=== PATIENT | female | born 1965 | race Caucasian/White ===

== ENCOUNTER 2021-01-17 11:16 | Inpatient (IN) ==
[2021-01-17] MEDS ORDERED: SODIUM CHLORIDE 0.9% 1000ML 1,000 ML IV ONE (11:41)
[2021-01-17] MEDS ORDERED: ACYCLOVIR 400 MG TAB PO ONE (11:53)
--- NOTE | 2021-01-17 11:58 | XRay Report ---
XR chest 1V portable CLINICAL HISTORY: SEPSIS TECHNIQUE: Single frontal radiograph of the chest was obtained. Comparison: None available at the time of this dictation. FINDINGS: No lines and tubes are seen. The cardiomediastinal silhouette is normal. The lungs are clear. No evid ence of pleural effusion or pneumothorax. IMPRESSION: No acute chest disease. ACT 112: Negative or not required by law. Electronically signed by: Jeff Langford M.D. 01/17/2021 11:57 AM
--- NOTE | 2021-01-17 12:03 | Emergency Department Note ---
History of Present Illness General Chief complaint: Mental Health Evaluation Stated complaint: PSYCHIATRIC EVAL Time Seen by Provider: 01/17/21 11:41 History of Present Illness Provider complaint: Mental health evaluation suicidal ideation Maximum Pain Intensity: 3 Associated symptoms: + fever/chills 55-year-old female with history of CML presents emergency department for suicidal ideation, depression, and anxiety. Patient reports that she has been having these feelings for the last 6 months. Patient is being treated by oncology at [facility] for CML. Patient reports that she has a plan to kill herself by dressing and all black and then walking on a highway hoping to get struck by a tractor trailer. Patient states she has other plans on how she would kill her self but refuses to tell me the other plans. Patient states she went to [facility] and was referred here. She states that a week that she had a temperature of 101 and that is why they brought her to the emergency department here. Patient states she has been having fevers on and off for the last few days. Home Medications Medication Instructions Recorded Confirmed Type acyclovir 400 mg tablet 400 mg PO BID 01/17/21 01/17/21 History cefuroxime axetil 250 mg tablet 250 mg PO BID 01/17/21 01/17/21 History clonazepam 0.5 mg tablet 0.5 mg PO TID 01/17/21 01/17/21 History dasatinib 50 mg tablet (Sprycel) 100 mg PO DAILY 01/17/21 01/17/21 History metoprolol succinate 25 mg 25 mg PO BID 01/17/21 01/17/21 History tablet,extended release 24 hr Allergies Allergy/AdvReac Type Severity Reaction Status Date / Time carbamazepine [From Tegretol] Allergy Anaphylaxis Verified 01/17/21 15:52 codeine Allergy Anaphylaxis Verified 01/17/21 15:52 meperidine [From Demerol] Allergy Anaphylaxis Verified 01/17/21 15:52 morphine Allergy Anaphylaxis Verified 01/17/21 15:52 Penicillins Allergy Anaphylaxis Verified 01/17/21 15:52 phenobarbital Allergy Anaphylaxis Verified 01/17/21 15:52 Sulfa (Sulfonamide Allergy Anaphylaxis Verified 01/17/21 15:52 Antibiotics) IVP dye Allergy Anaphylaxis Uncoded 01/17/21 15:52 sodium pentothal Allergy Anaphylaxis Uncoded 01/17/21 15:52 Past Med/Surg History Medical History (Updated 01/17/21 @ 15:06 by Osmin Balderas MD) Anxiety Choledocholithiasis s/p ERCP, no cholecystectomy CML (chronic myelocytic leukemia) History of small bowel obstruction s/p adehesiolysis surgery Muscle cramps Rheumatoid arthritis Surgical History (Updated 01/17/21 @ 14:59 by Osmin Balderas MD) History of appendectomy History of section History of hysterectomy with oophorectomy Social History Smoking Status: Never smoker Preferred Language: Danish Feels Safe at Home: Yes Review of Systems A total of 10 systems reviewed and were otherwise negative Physical Exam Vital Signs Vital Signs - 24 hr 01/17/21 11:36 01/17/21 11:45 01/17/21 11:46 Temperature 37.9 C H 37.1 C 37.1 C Temperature Source Temporal Artery Scan Oral Oral Pulse Rate 104 H Pulse Rate [Apical] Pulse Rhythm Regular Pulse Strength Normal Respiratory Rate 18 Respiratory Effort / Characteristics Non-Labored Spontaneous Respiratory Depth Normal Respiratory Pattern Regular Blood Pressure 130/75 Blood Pressure [Left Arm] Blood Pressure Mean 93 Blood Pressure Mean [Left Arm] Blood Pressure Position Sitting Pulse Oximetry 95 Oxygen Delivery Method Room Air Sepsis Recent Fever Within 48 Hours No Sepsis New/Unexplained Change in Mental Status No Sepsis Action Taken by Nursing No Action Required 01/17/21 13:21 01/17/21 14:18 Temperature Temperature Source Pulse Rate Pulse Rate [Apical] 93 H 100 H Pulse Rhythm Pulse Strength Respiratory Rate 20 20 Respiratory Effort / Characteristics Non-Labored Spontaneous Non-Labored Spontaneous Respiratory Depth Normal Normal Respiratory Pattern Regular Regular Blood Pressure Blood Pressure [Left Arm] 138/80 145/78 H Blood Pressure Mean Blood Pressure Mean [Left Arm] 99 100 Blood Pressure Position Pulse Oximetry 96 95 Oxygen Delivery Method Room Air Room Air Sepsis Recent Fever Within 48 Hours Sepsis New/Unexplained Change in Mental Status Sepsis Action Taken by Nursing Physical Exam GENERAL: She is oriented to person, place, and time. She appears well-developed and well-nourished. She does not appear distressed. HENT: Exam performed. -Head: Normocephalic and atraumatic. -Right Ear: External ear normal. No mastoid tenderness. -Left Ear: External ear normal. No mastoid tenderness. -Mouth/Throat: The oropharynx is clear and moist. No trismus in the jaw. No dental abscesses or uvula swelling. No oropharyngeal exudate or tonsillar abscesses. EYES: Conjunctivae and EOM are normal. Pupils are equal, round, and reactive to light. Right eye exhibits no discharge. Left eye exhibits no discharge. No scleral icterus. NECK: Normal range of motion. Neck supple. No JVD present. No spinous process tenderness present. No carotid bruit present. No rigidity. No tracheal deviation and normal range of motion present. No Brudzinski's sign and no Kernig's sign noted. CV: Tachycardic rate, regular rhythm, normal heart sounds and intact distal pulses. There is no peripheral edema. Palpable radial pulses bue. PULM/CHEST: Effort normal and breath sounds normal. No respiratory distress. No stridor. She has no wheezes. She has no rales. -Chest Wall: She exhibits no tenderness. ABD: The abdomen is soft. Bowel sounds are normal. She has no distension. No mass is present. There is no tenderness. There is no rebound, no guarding, no Zarate's sign and no tenderness at McBurney's point. Rovsig negative MUSC/SKEL: Normal range of motion. There is no peripheral edema, tenderness or deformity. LYMPH: No cervical adenopathy. NEURO: She is alert and oriented to person, place, and time. She has normal strength. No cranial nerve deficit or sensory deficit. Coordination and gait normal. GCS eye subscore is 4. GCS verbal subscore is 5. GCS motor subscore is 6. Cerebellar tests wnl. SKIN: Skin is warm and dry. She is not diaphoretic. PSYCH: Patient appears anxious and depressed. Patient is having suicidal ideation. Course Course 1141: The patient was evaluated in room C6 with psychiatric human resources district manager Fanta. A complete history and physical exam was performed Cardiac monitoring: An order was placed for continuous cardiac monitoring. The monitor shows a rate of 100 with sinus tachycardia rhythm 1330: Vital signs stable. Patient is positive for COVID-19. [facility] her COVID- 19 and her suicidal ideation and be evaluated by psychiatry. Administered Medications Discontinued Medications Acyclovir (Acyclovir 400 Mg Tab) 400 mg PO ONE ONE Stop: 01/17/21 11:54 Last Admin: 01/17/21 12:36 Dose: 400 mg Documented by: [id number] Sodium Chloride (Nss 1000ml) 1,000 mls @ 999 mls/hr IV .Q1H1M ONE Stop: 01/17/21 12:41 Last Infusion: 01/17/21 13:34 Dose: 0 mls/hr Documented by: [id number] Admin: 01/17/21 12:33 Dose: 999 mls/hr Documented by: [id number] Metoprolol Succinate (Metoprolol Succ 25mg Ext Rel Tab) 25 mg PO ONE STA Stop: 01/17/21 15:25 Last Admin: 01/17/21 16:06 Dose: 25 mg Documented by: [id number] Potassium Chloride (Potassium Chloride 10 Meq Tabcr) 40 meq PO NOW STA Stop: 01/17/21 14:56 Last Admin: 01/17/21 15:56 Dose: Not Given Documented by: [id number] Medical Decision Making Laboratory Data Result diagrams: 01/17/21 12:11 01/17/21 12:11 Lab Results 01/17/21 01/17/21 01/17/21 Range/Units 12:09 12:09 12:11 WBC 3.03 L (4.8-10.8) K/uL RBC 3.75 L (4.2-5.4) M/uL Hgb 11.5 L (12.0-16.0) g/dL Hct 34.9 L (37-47) % MCV 93.1 (80-100) fL MCH 30.7 (25-34) pg MCHC 33.0 (32-36) g/dL RDW Std Deviation 56.0 H (36.4-46.3) fL RDW Coeff of Elpidio 16.2 H (11.5-14.5) % Plt Count 135 (130-400) K/uL MPV 10.9 H (7.4-10.4) fL Immature Gran % (Auto) 0.0 % Neut % (Auto) 83.5 % Lymph % (Auto) 6.3 % Turner % (Auto) 9.6 % Eos % (Auto) 0.3 % Baso % (Auto) 0.3 % Neut # (Auto) 2.53 (1.4-6.5) K/uL Lymph # (Auto) 0.19 L (1.2-3.4) K/uL Turner # (Auto) 0.29 (0.11-0.59) K/uL Eos # (Auto) 0.01 (0-0.5) K/uL Baso # (Auto) 0.01 (0-0.2) K/uL Immature Gran # (Auto) 0.00 (0.00-0.02) K/uL PT (9.0-12.0) Seconds INR (0.9-1.1) APTT (21.0-31.0) Seconds PTT Ratio Sodium (136-145) mmol/L Potassium (3.5-5.1) mmol/L Chloride (98-107) mmol/L Carbon Dioxide (21-32) mmol/L Anion Gap (3-11) BUN (7-18) mg/dl Creatinine (0.6-1.2) mg/dl Est Cr Clr Drug Dosing ml/min Est GFR ( Amer) ml/min Est GFR (Non-Af Amer) ml/min BUN/Creatinine Ratio (10-20) Glucose (70-99) mg/dl Lactate (0.4-2.0) mmol/L Calcium (8.5-10.1) mg/dl Magnesium (1.8-2.4) mg/dl Total Bilirubin (0.2-1) mg/dl AST (15-37) U/L ALT (12-78) U/L Alkaline Phosphatase (45-117) U/L Troponin I (0-0.045) ng/ml Total Protein (6.4-8.2) gm/dl Albumin (3.4-5.0) gm/dl Globulin (2.5-4.0) gm/dl Albumin/Globulin Ratio (0.9-2) Procalcitonin (0-0.5) ng/ml Urine Color Urine Appearance (Clear) Urine pH (4.5-7.5) Ur Specific Callery (1.000-1.030) Urine Protein (Negative) Urine Glucose (UA) (Negative) Urine Ketones (Negative) Urine Blood (Negative) Urine Nitrite (Negative) Urine Bilirubin (Negative) Urine Urobilinogen (Negative) Ur Leukocyte Esterase (Negative) Urine WBC (Auto) (0-5) /hpf Urine RBC (Auto) (0-4) /hpf U Hyaline Cast (Auto) (0-5) /lpf U Epithel Cells (Auto) (0-5) /lpf Urine Bacteria (Auto) (Negative) Salicylates (2.8-20) mg/dl Acetaminophen (10-30) ug/ml COVID-19 Eval Order Covid19 at [facility] SARS-CoV-2 (PCR) POSITIVE A* (Negative) 01/17/21 01/17/21 01/17/21 Range/Units 12:11 12:11 12:11 WBC (4.8-10.8) K/uL RBC (4.2-5.4) M/uL Hgb (12.0-16.0) g/dL Hct (37-47) % MCV (80-100) fL MCH (25-34) pg MCHC (32-36) g/dL RDW Std Deviation (36.4-46.3) fL RDW Coeff of Elpidio (11.5-14.5) % Plt Count (130-400) K/uL MPV (7.4-10.4) fL Immature Gran % (Auto) % Neut % (Auto) % Lymph % (Auto) % Turner % (Auto) % Eos % (Auto) % Baso % (Auto) % Neut # (Auto) (1.4-6.5) K/uL Lymph # (Auto) (1.2-3.4) K/uL Turner # (Auto) (0.11-0.59) K/uL Eos # (Auto) (0-0.5) K/uL Baso # (Auto) (0-0.2) K/uL Immature Gran # (Auto) (0.00-0.02) K/uL PT 11.1 (9.0-12.0) Seconds INR 1.1 (0.9-1.1) APTT 27.6 (21.0-31.0) Seconds PTT Ratio 1.0 Sodium 141 (136-145) mmol/L Potassium 3.1 L (3.5-5.1) mmol/L Chloride 108 H (98-107) mmol/L Carbon Dioxide 27 (21-32) mmol/L Anion Gap 6.0 (3-11) BUN 6 L (7-18) mg/dl Creatinine 0.63 (0.6-1.2) mg/dl Est Cr Clr Drug Dosing 74.3 ml/min Est GFR ( Amer) 115.4 ml/min Est GFR (Non-Af Amer) 99.6 ml/min BUN/Creatinine Ratio 9.5 L (10-20) Glucose 93 (70-99) mg/dl Lactate 0.7 (0.4-2.0) mmol/L Calcium 9.3 (8.5-10.1) mg/dl Magnesium 1.9 (1.8-2.4) mg/dl Total Bilirubin 0.5 (0.2-1) mg/dl AST 30 (15-37) U/L ALT 33 (12-78) U/L Alkaline Phosphatase 78 (45-117) U/L Troponin I < 0.015 (0-0.045) ng/ml Total Protein 7.2 (6.4-8.2) gm/dl Albumin 3.8 (3.4-5.0) gm/dl Globulin 3.4 (2.5-4.0) gm/dl Albumin/Globulin Ratio 1.1 (0.9-2) Procalcitonin (0-0.5) ng/ml Urine Color Urine Appearance (Clear) Urine pH (4.5-7.5) Ur Specific Callery (1.000-1.030) Urine Protein (Negative) Urine Glucose (UA) (Negative) Urine Ketones (Negative) Urine Blood (Negative) Urine Nitrite (Negative) Urine Bilirubin (Negative) Urine Urobilinogen (Negative) Ur Leukocyte Esterase (Negative) Urine WBC (Auto) (0-5) /hpf Urine RBC (Auto) (0-4) /hpf U Hyaline Cast (Auto) (0-5) /lpf U Epithel Cells (Auto) (0-5) /lpf Urine Bacteria (Auto) (Negative) Salicylates (2.8-20) mg/dl Acetaminophen (10-30) ug/ml COVID-19 Eval Order SARS-CoV-2 (PCR) (Negative) 01/17/21 01/17/21 01/17/21 Range/Units 12:11 12:11 12:30 WBC (4.8-10.8) K/uL RBC (4.2-5.4) M/uL Hgb (12.0-16.0) g/dL Hct (37-47) % MCV (80-100) fL MCH (25-34) pg MCHC (32-36) g/dL RDW Std Deviation (36.4-46.3) fL RDW Coeff of Elpidio (11.5-14.5) % Plt Count (130-400) K/uL MPV (7.4-10.4) fL Immature Gran % (Auto) % Neut % (Auto) % Lymph % (Auto) % Turner % (Auto) % Eos % (Auto) % Baso % (Auto) % Neut # (Auto) (1.4-6.5) K/uL Lymph # (Auto) (1.2-3.4) K/uL Turner # (Auto) (0.11-0.59) K/uL Eos # (Auto) (0-0.5) K/uL Baso # (Auto) (0-0.2) K/uL Immature Gran # (Auto) (0.00-0.02) K/uL PT (9.0-12.0) Seconds INR (0.9-1.1) APTT (21.0-31.0) Seconds PTT Ratio Sodium (136-145) mmol/L Potassium (3.5-5.1) mmol/L Chloride (98-107) mmol/L Carbon Dioxide (21-32) mmol/L Anion Gap (3-11) BUN (7-18) mg/dl Creatinine (0.6-1.2) mg/dl Est Cr Clr Drug Dosing ml/min Est GFR ( Amer) ml/min Est GFR (Non-Af Amer) ml/min BUN/Creatinine Ratio (10-20) Glucose (70-99) mg/dl Lactate (0.4-2.0) mmol/L Calcium (8.5-10.1) mg/dl Magnesium (1.8-2.4) mg/dl Total Bilirubin (0.2-1) mg/dl AST (15-37) U/L ALT (12-78) U/L Alkaline Phosphatase (45-117) U/L Troponin I (0-0.045) ng/ml Total Protein (6.4-8.2) gm/dl Albumin (3.4-5.0) gm/dl Globulin (2.5-4.0) gm/dl Albumin/Globulin Ratio (0.9-2) Procalcitonin < 0.05 (0-0.5) ng/ml Urine Color Yellow Urine Appearance Clear (Clear) Urine pH 6.5 (4.5-7.5) Ur Specific Callery 1.014 (1.000-1.030) Urine Protein Trace H (Negative) Urine Glucose (UA) Negative (Negative) Urine Ketones Trace H (Negative) Urine Blood Trace H (Negative) Urine Nitrite Negative (Negative) Urine Bilirubin Negative (Negative) Urine Urobilinogen Negative (Negative) Ur Leukocyte Esterase 2+ H (Negative) Urine WBC (Auto) 5-10 H (0-5) /hpf Urine RBC (Auto) 5-10 H (0-4) /hpf U Hyaline Cast (Auto) 10-30 H (0-5) /lpf U Epithel Cells (Auto) >30 H (0-5) /lpf Urine Bacteria (Auto) Negative (Negative) Salicylates < 1.7 L (2.8-20) mg/dl Acetaminophen < 2 L (10-30) ug/ml COVID-19 Eval Order SARS-CoV-2 (PCR) (Negative) Imaging Data Radiologist's Impression: Chest X-Ray 01/17/21 11:41 XR chest 1V portable CLINICAL HISTORY: SEPSIS TECHNIQUE: Single frontal radiograph of the chest was obtained. Comparison: None available at the time of this dictation. FINDINGS: No lines and tubes are seen. The cardiomediastinal silhouette is normal. The lungs are clear. No evidence of pleural effusion or pneumothorax. IMPRESSION: No acute chest disease. ACT 112: Negative or not required by law. Electronically signed by: Jeff Langford M.D. 01/17/2021 11:57 AM [facility] Narrative Vital signs stable. Patient is positive for COVID-19. Patient will be admitted to the [facility] hospitalist team for further evaluation of her COVID-19 and her suicidal ideation and be evaluated by psychiatry. Impression & Plan SARS-CoV-2 positive, Suicidal ideation Discharge Plan Visit Data Chief Complaint: Mental Health Evaluation Stated Complaint: PSYCHIATRIC EVAL ED Provider: Leon Cartagena Discharge Problem: SARS-CoV-2 positive, Suicidal ideation Patient Disposition: Being Evaluated by Hospitalist Forms Stand Alone Forms: My [facility], Suicide Prevention Resources Prescriptions Prescriptions: No Action cefuroxime axetil 250 mg tablet 250 mg PO BID RF: 0 clonazepam 0.5 mg tablet 0.5 mg PO TID RF: 0 acyclovir 400 mg tablet 400 mg PO BID RF: 0 metoprolol succinate 25 mg Tablet Extended Release 24 Hr 25 mg PO BID RF: 0 Sprycel 50 mg tablet 100 mg PO DAILY RF: 0 Referrals Referrals: PCP,NO [Primary Care Provider] -
[2021-01-17 12:23] LABS: Basophils # (auto) 0.01 K/uL (0-0.2); Basophils % (auto) 0.3 %; Eosinophils # (auto) 0.01 K/uL (0-0.5); Eosinophils % (auto) 0.3 %; Hematocrit (blood only) 34.9 % (37-47); Hemoglobin 11.5 g/dL (12.0-16.0); Lymphocytes # (auto) 0.19 K/uL (1.2-3.4); Lymphocytes % (auto) 6.3 %; Mean Corpuscular Hemoglobin 30.7 pg (25-34); Mean Corpuscular Volume 93.1 fL (80-100); Mean Platelet Volume 10.9 fL (7.4-10.4); Monocytes # (auto) 0.29 K/uL (0.11-0.59); Monocytes % (auto) 9.6 %; Neutrophils # (auto) 2.53 K/uL (1.4-6.5); Neutrophils % (auto) 83.5 %; Platelet Count 135 K/uL (130-400); RDW Coefficient of Variation 16.2 % (11.5-14.5); Red Blood Count 3.75 M/uL (4.2-5.4); White Blood Count 3.03 K/uL (4.8-10.8)
[2021-01-17 12:35] LABS: INR 1.1 (0.9-1.1); Partial Thromboplastin Time 27.6 Seconds (21.0-31.0); Prothrombin Time 11.1 Seconds (9.0-12.0)
[2021-01-17 12:45] LABS: Acetaminophen < 2 ug/ml (10-30); Alanine Aminotransferase 33 U/L (12-78); Albumin Level 3.8 gm/dl (3.4-5.0); Aspartate Aminotransferase 30 U/L (15-37); BUN Creatinine Ratio 9.5 (10-20); Blood Urea Nitrogen 6 mg/dl (7-18); Calcium 9.3 mg/dl (8.5-10.1); Carbon Dioxide 27 mmol/L (21-32); Chloride 108 mmol/L (98-107); Creatinine Clr Calc Pharmacy 74.3 ml/min; Est GFR (African American) 115.4 ml/min; Est GFR (Non-African American) 99.6 ml/min; Glucose 93 mg/dl (70-99); Magnesium 1.9 mg/dl (1.8-2.4); Potassium 3.1 mmol/L (3.5-5.1); Salicylate < 1.7 mg/dl (2.8-20); Sodium 141 mmol/L (136-145)
[2021-01-17 12:51] LABS: Appearance Urine Clear (Clear); Bacteria Urine Automated Negative (Negative); Bilirubin Urine Negative (Negative); Blood Urine Trace (Negative); Color Urine Yellow; Epithelial Cell Urine Auto >30 /lpf (0-5); Glucose Urine UA Negative (Negative); Ketones Urine Trace (Negative); Leukocyte Esterase Urine 2+ (Negative); Nitrite Urine Negative (Negative); Protein Urine Trace (Negative); Specific Gravity Urine 1.014 (1.000-1.030); Urobilinogen Urine Negative (Negative); pH Urine 6.5 (4.5-7.5)
[2021-01-17 12:52] LABS: Albumin Globulin Ratio 1.1 (0.9-2); Alkaline Phosphatase 78 U/L (45-117); Bilirubin,Total 0.5 mg/dl (0.2-1); Globulin 3.4 gm/dl (2.5-4.0); Total Protein 7.2 gm/dl (6.4-8.2); Troponin I < 0.015 ng/ml (0-0.045)
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
[2021-01-17] MEDS ORDERED: POTASSIUM CHLORIDE 10 MEQ TABCR PO STA (14:55)
[2021-01-17] MEDS ORDERED: DASATINIB 100 MG PO STA (15:24)
[2021-01-17] MEDS ORDERED: METOPROLOL SUCC 25MG EXT REL TAB PO STA (15:24)
[2021-01-17] MEDS: [UNRECOGNIZED DRUG - REMARK] PO SCH (17:20)
[2021-01-17] MEDS ORDERED: clonazePAM 0.5 MG TAB PO PRN (20:42)
[2021-01-17] MEDS: ACYCLOVIR 400 MG TAB PO SCH (23:27)
[2021-01-17] MEDS: METOPROLOL SUCC 25MG EXT REL TAB PO SCH (23:28)
[2021-01-17] MEDS: PANTOprazole 40 MG TAB PO SCH (23:50)
[2021-01-18] MEDS ORDERED: ONDANSETRON INJ 2 MG/ML 2 ML VIAL IV PRN (00:54)
[2021-01-18] MEDS ORDERED: haloperidoL 1 MG TAB PO PRN (00:58)
[2021-01-18] MEDS ORDERED: PROMETHAZINE HCL 25 MG TAB PO PRN (00:58)
[2021-01-18] MEDS ORDERED: ONDANSETRON 4 MG OD TAB SL PRN (00:58)
[2021-01-18] MEDS: ACETAMINOPHEN 325 MG TAB PO PRN (01:35)
[2021-01-18] MEDS: PANTOprazole 40 MG in SYRINGE 0 ML IV SCH ×2 (01:35→10:52)
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
[2021-01-18] MEDS: METOPROLOL SUCC 25MG EXT REL TAB PO SCH ×2 (08:49→21:50)
[2021-01-18] MEDS: ACYCLOVIR 400 MG TAB PO SCH ×2 (08:49→21:50)
--- NOTE | 2021-01-18 11:49 | Hospitalist Progress Note ---
Date of Service January 18, 2021 Assessment & Plan (1) SARS-CoV-2 positive: Plan: Patient states she has had COVID-19 in the past. Was admitted to the hospital on account of suicidal ideation, and found to have positive COVID-19 test. Currently asymptomatic, saturating well on room air, afebrile. We will repeat COVID-19 test today (2) Suicidal ideation: Plan: Severe depression with suicidal ideation. Psychiatry on consult Currently on Klonopin, plan is for Remeron Deferred rest of management per psychiatry Patient will qualify for inpatient psych if her COVID-19 test comes back negative twice (3) Anxiety: Plan: Continue home medications (4) Rheumatoid arthritis: Plan: Patient not on any medication, unable to take biologics due to prior severe reaction to vaccines previously. (5) Atrial fibrillation: Plan: Currently in NSR therefore paroxysmal Continue metoprolol Not on anticoagulation (6) CML (chronic myelocytic leukemia): Plan: Dasatinib 100mg PO once daily Admission and Anticipated Discharge Date Admission Date: January 17, 2021 Subjective Patient seen and examined this morning, has a one-to-one sitter by the bedside, still has some anxiety Review of Systems Review of Systems: All systems reviewed are negative, apart from the ones contained in the history. Physical Exam Physical Exam: The patient is awake, alert and oriented 3, well developed and well nourished, normocephalic and atraumatic, lying in bed and in no acute distress. HEENT--PERRL, EOMI, mucous membranes and oropharynx mildly dry Neck--supple. No JVD. No bruits. Thyroid normal, trachea midline, no adenopathy. Heart--normal S1 and S2. No murmurs, rubs or gallops. Lungs--clear bilaterally, no respiratory distress, no accessory muscle use. Abdomen--normal bowel sounds and soft. Mild epigastric and left sided abdominal pain Extremities--no cyanosis or clubbing. No edema. Dermatologic--normal skin turgor, normal color, no abnormal lymph nodes, no rash. Neurologic--cranial nerves II through XII grossly intact. Rheumatologic--normal range of motion. Psychiatric--anxiety. Results & Data Results & Data ([facility]) Vital Signs (Past 12 Hours) Vital Signs Temp Pulse Resp BP Pulse Ox 01/18/21 08:03 98.1 F 69 16 98/61 L 99 Laboratory Results Laboratory Results - last 24 hr 01/17/21 01/17/21 01/17/21 12:09 12:09 12:11 WBC 3.03 L RBC 3.75 L Hgb 11.5 L Hct 34.9 L MCV 93.1 MCH 30.7 MCHC 33.0 RDW Std Deviation 56.0 H RDW Coeff of Elpidio 16.2 H Plt Count 135 MPV 10.9 H Immature Gran % (Auto) 0.0 Neut % (Auto) 83.5 Lymph % (Auto) 6.3 [place] % (Auto) 9.6 Eos % (Auto) 0.3 Baso % (Auto) 0.3 Neut # (Auto) 2.53 Lymph # (Auto) 0.19 L [place] # (Auto) 0.29 Eos # (Auto) 0.01 Baso # (Auto) 0.01 Immature Gran # (Auto) 0.00 PT INR APTT PTT Ratio Sodium Potassium Chloride Carbon Dioxide Anion Gap BUN Creatinine Est Cr Clr Drug Dosing Est GFR ( Amer) Est GFR (Non-Af Amer) BUN/Creatinine Ratio Glucose Lactate Calcium Magnesium Total Bilirubin AST ALT Alkaline Phosphatase Troponin I Total Protein Albumin Globulin Albumin/Globulin Ratio Procalcitonin Urine Color Urine Appearance Urine pH Ur Specific [place] Urine Protein Urine Glucose (UA) Urine Ketones Urine Blood Urine Nitrite Urine Bilirubin Urine Urobilinogen Ur Leukocyte Esterase Urine WBC (Auto) Urine RBC (Auto) U Hyaline Cast (Auto) U Epithel Cells (Auto) Urine Bacteria (Auto) Salicylates Acetaminophen COVID-19 Eval Order Covid19 at [facility] SARS-CoV-2 (PCR) POSITIVE A* 01/17/21 01/17/21 01/17/21 12:11 12:11 12:11 WBC RBC Hgb Hct MCV MCH MCHC RDW Std Deviation RDW Coeff of Elpidio Plt Count MPV Immature Gran % (Auto) Neut % (Auto) Lymph % (Auto) [place] % (Auto) Eos % (Auto) Baso % (Auto) Neut # (Auto) Lymph # (Auto) [place] # (Auto) Eos # (Auto) Baso # (Auto) Immature Gran # (Auto) PT 11.1 INR 1.1 APTT 27.6 PTT Ratio 1.0 Sodium 141 Potassium 3.1 L Chloride 108 H Carbon Dioxide 27 Anion Gap 6.0 BUN 6 L Creatinine 0.63 Est Cr Clr Drug Dosing 74.3 Est GFR ( Amer) 115.4 Est GFR (Non-Af Amer) 99.6 BUN/Creatinine Ratio 9.5 L Glucose 93 Lactate 0.7 Calcium 9.3 Magnesium 1.9 Total Bilirubin 0.5 AST 30 ALT 33 Alkaline Phosphatase 78 Troponin I < 0.015 Total Protein 7.2 Albumin 3.8 Globulin 3.4 Albumin/Globulin Ratio 1.1 Procalcitonin Urine Color Urine Appearance Urine pH Ur Specific [place] Urine Protein Urine Glucose (UA) Urine Ketones Urine Blood Urine Nitrite Urine Bilirubin Urine Urobilinogen Ur Leukocyte Esterase Urine WBC (Auto) Urine RBC (Auto) U Hyaline Cast (Auto) U Epithel Cells (Auto) Urine Bacteria (Auto) Salicylates Acetaminophen COVID-19 Eval Order SARS-CoV-2 (PCR) 01/17/21 01/17/21 01/17/21 12:11 12:11 12:30 WBC RBC Hgb Hct MCV MCH MCHC RDW Std Deviation RDW Coeff of Elpidio Plt Count MPV Immature Gran % (Auto) Neut % (Auto) Lymph % (Auto) [place] % (Auto) Eos % (Auto) Baso % (Auto) Neut # (Auto) Lymph # (Auto) [place] # (Auto) Eos # (Auto) Baso # (Auto) Immature Gran # (Auto) PT INR APTT PTT Ratio Sodium Potassium Chloride Carbon Dioxide Anion Gap BUN Creatinine Est Cr Clr Drug Dosing Est GFR ( Amer) Est GFR (Non-Af Amer) BUN/Creatinine Ratio Glucose Lactate Calcium Magnesium Total Bilirubin AST ALT Alkaline Phosphatase Troponin I Total Protein Albumin Globulin Albumin/Globulin Ratio Procalcitonin < 0.05 Urine Color Yellow Urine Appearance Clear Urine pH 6.5 Ur Specific [place] 1.014 Urine Protein Trace H Urine Glucose (UA) Negative Urine Ketones Trace H Urine Blood Trace H Urine Nitrite Negative Urine Bilirubin Negative Urine Urobilinogen Negative Ur Leukocyte Esterase 2+ H Urine WBC (Auto) 5-10 H Urine RBC (Auto) 5-10 H U Hyaline Cast (Auto) 10-30 H U Epithel Cells (Auto) >30 H Urine Bacteria (Auto) Negative Salicylates < 1.7 L Acetaminophen < 2 L COVID-19 Eval Order SARS-CoV-2 (PCR) PG Care Time/CCT Total # of Minutes Spent Total Time Spent with Patient: Total time spent is greater than 50% in coordination of care (as documented) at patient's floor/unit and/or counseling patient: Coding Level of Care Code 96817 Subseq Hosp Care Lvl 2 Diagnoses SARS-CoV-2 positive U07.1 Suicidal ideation R45.851 Anxiety F41.9 Rheumatoid arthritis M06.9 Atrial fibrillation I48.91 CML (chronic myelocytic leukemia) C92.10
--- NOTE | 2021-01-18 13:19 | Electrocardiogram Report ---
Test Reason : Blood Pressure : / mmHG Vent. Rate : 100 BPM Atrial Rate : 100 BPM P-R Int : 154 ms QRS Dur : 068 ms QT Int : 336 ms P-R-T Axes : 049 062 039 degrees QTc Int : 433 ms Normal sinus rhythm Normal ECG No previous ECGs available Confirmed by Jason Kinney [id number]) on 01/18/2021 1:19:14 PM Referred By: REFERRED SELF Confirmed By:Jason Kinney
[2021-01-18] MEDS ORDERED: ALPRAZolam 0.25 MG TABLET PO PRN (14:44)
[2021-01-18] MEDS ORDERED: DASATINIB 50 MG PO SCH (16:00)
[2021-01-18] MEDS: [UNRECOGNIZED DRUG - REMARK] PO SCH (17:28)
[2021-01-18] MEDS: MIRTAZAPINE TAB 15 MG TAB PO SCH (21:49)
[2021-01-18] MEDS: PANTOprazole 40 MG TAB PO SCH (21:50)
[2021-01-18] MEDS: hydrOXYzine HCl 10 MG TAB PO PRN (21:51)
[2021-01-19 08:04] LABS: Calcium 8.5 mg/dl (8.5-10.1); Creatinine Clr Calc Pharmacy 68.9 ml/min; Est GFR (African American) 112.5 ml/min; Est GFR (Non-African American) 97.1 ml/min; Potassium 2.9 mmol/L (3.5-5.1)
[2021-01-19] MEDS: ACYCLOVIR 400 MG TAB PO SCH ×2 (09:31→22:25)
[2021-01-19] MEDS: METOPROLOL SUCC 25MG EXT REL TAB PO SCH ×2 (09:34→22:26)
--- NOTE | 2021-01-19 10:43 | Psychiatric Progress Note ---
Date of Service January 19, 2021 Impression / Recommendations Impression 55 yo female with CML, sent to ED for SI with plan, reported fever and found COVID+--severe depression with anxiety component, unable to fully assess for PTSD given patient's level of anxiety during the assessment. (1) Suicidal ideation: (2) Major depression, recurrent: (3) SARS-CoV-2 positive: (4) CML (chronic myelocytic leukemia): 01/19/21: session took place with social work job titles and liaison to decrease splitting. Continue medications unchanged. 01/18/21: verify if had thyroid panel as typical psych clearance continue 1-on-1, should not be allowed to leave hospital AMA given potential lethality of plan and no coordinated safety plan at this time re: Tom, d/c in favor of trial of hydroxyzine 10 mg q6 prn. Lower dose given size and QTc risk with antiemetics. Risks/benefits/alternatives reviewed re: antidepressants for the treatment of depression and/or anxiety. The patient agreed to a trial of Remeron 7.5 mg starting this hs. Risk Factors Assessment Do You Have Access To A Gun?: No Interval History Identifying Information 55 yo female with CML admit 01/17/21 for fever, COVID+, suicidal ideation with plan. Chief Complaint "I wasn't going to be forced to stay anywhere where I don't agree with the policies". Review of Systems Notes as per HPI, denies BETTS, tremor, jitteriness. Telehealth Telehealth Options: Telephone only For the duration of the visit, provider was performing the assessment from: The same facility as the patient After establishing a telemedicine visit, patient was: Patient was verified with two unique identifiers, Patient/authorized rep acknowledged consent and understanding and Gave permission to continue telehealth session Total Time Spent (minutes): 25 Subjective Subjective Patient was seen & assessed and interval progress reviewed with nursing and social work. Patient was threatening to leave hospital AMA yesterday and to self-harm in her room. This was quite a contrast with her presentation earlier in the day. She was clearly told this was not appropriate given her acute suicidality and liaison prepped a petitioning statement. The patient reports sleep was fair. She was redirected away from unit policies as not medically cleared. Offered to involve boyfriend and daughter in stay and she preferred to wait. She discussed loss of her grandchild at 24 hours due to a dysplastic lung 5 years ago on Feb 21. She is glad that her daughter is tapering methadone and plans to get inseminated to have another child with her female partner. She was future focussed but also not feeling well with 2 days of N and D (typical) and reviewed hypokalemia. Physical Exam Psychiatric Orientation: alert and oriented x 3 Speech: normal rate/rhythm/volume of speech Mood: + depressed mood and + anxious mood Thought Process: goal directed thought process Thought Content: reality based without delusions Suicidal Thoughts: denies suicidal intent; + reports suicidal thoughts Homicidal Thoughts: denies homicidal thoughts Hallucinations: no auditory hallucinations and no visual hallucinations Cognition: attention grossly intact and language grossly intact Estimated Intelligence: consistent with education level Insight: + limited insight Judgement: + limited judgement Vital Signs (Past 24 Hours) Last Vital Signs Temp 37 C 01/19/21 08:19 Pulse 83 01/19/21 08:19 Resp 16 01/19/21 08:19 BP 107/68 01/19/21 08:19 Pulse Ox 91 01/19/21 08:19 Results & Data ([facility]) Laboratory Results Laboratory Results - last 24 hr 01/18/21 01/19/21 Unknown 06:40 Sodium 139 Potassium 2.9 L Chloride 107 Carbon Dioxide 24 Anion Gap 9.0 BUN 8 Creatinine 0.68 Est Cr Clr Drug Dosing 68.9 Est GFR ( Amer) 112.5 Est GFR (Non-Af Amer) 97.1 BUN/Creatinine Ratio 12.0 Glucose 83 Calcium 8.5 RSV (Molecular) Negative Current Inpatient Medications Current Inpatient Medications: Current Inpatient Medications Acetaminophen (Acetaminophen 325 Mg Tab) 650 mg PO Q4H PRN PRN Reason: Pain or Fever Stop: 02/17/21 00:53 Last Admin: 01/18/21 01:35 Dose: 650 mg Documented by: Acyclovir (Acyclovir 400 Mg Tab) 400 mg PO BID [facility] Stop: 02/16/21 20:59 Last Admin: 01/19/21 09:31 Dose: 400 mg Documented by: Haloperidol (Haloperidol 1 Mg Tab) 1 mg PO Q4H PRN PRN Reason: Nausea &/or Vomiting Stop: 02/17/21 00:57 Hydroxyzine HCl (Hydroxyzine Hcl 10 Mg Tab) 10 mg PO Q6 PRN PRN Reason: Anxiety Stop: 02/17/21 16:32 Last Admin: 01/18/21 21:51 Dose: 10 mg Documented by: Pantoprazole Sodium 40 mg/ (Syringe) 10 mls @ 5 mls/min IV DAILY@1100 [facility] Stop: 02/17/21 00:54 Last Admin: 01/18/21 10:52 Dose: 5 mls/min Documented by: Metoprolol Succinate (Metoprolol Succ 25mg Ext Rel Tab) 25 mg PO BID [facility] Stop: 02/16/21 20:59 Last Admin: 01/19/21 09:34 Dose: 25 mg Documented by: Mirtazapine (Mirtazapine Tab 15 Mg Tab) 7.5 mg PO HS [facility] Stop: 02/17/21 20:59 Last Admin: 01/18/21 21:49 Dose: 7.5 mg Documented by: *Dasatinib*Non-Form (Patient's Own Med) 1 ea PO DAILY [facility] Stop: 02/16/21 16:29 Last Admin: 01/18/21 17:28 Dose: 2 tab Documented by: Ondansetron HCl (Ondansetron Inj 2 Mg/Ml 2 Ml Vial) 4 mg IV Q6H PRN PRN Reason: Nausea Stop: 02/17/21 00:53 Ondansetron HCl (Ondansetron 4 Mg Od Tab) 4 mg SL Q4H PRN PRN Reason: Nausea &/or Vomiting Stop: 02/17/21 00:57 Pantoprazole Sodium (Pantoprazole 40 Mg Tab) 40 mg PO HS [facility] Stop: 02/16/21 22:34 Last Admin: 01/18/21 21:50 Dose: 40 mg Documented by: Promethazine HCl (Promethazine Hcl 25 Mg Tab) 12.5 mg PO Q6H PRN PRN Reason: Nausea &/or Vomiting Stop: 02/17/21 00:57
[2021-01-19] MEDS: PANTOprazole 40 MG in SYRINGE 0 ML IV SCH (10:52)
[2021-01-19] MEDS ORDERED: POTASSIUM CHLORIDE CRTAB 20 MEQ TABCR PO STA (11:13)
--- NOTE | 2021-01-19 11:30 | Hospitalist Progress Note ---
Date of Service January 19, 2021 Assessment & Plan (1) SARS-CoV-2 positive: Plan: Patient states she has had COVID-19 in the past. Was admitted to the hospital on account of suicidal ideation, and found to have positive COVID-19 test. Currently asymptomatic, saturating well on room air, afebrile. Although repeat covid was ordered yesterday, but it wasnt done for some reason. Will get a repeat covid today (2) Suicidal ideation: Plan: Severe depression with suicidal ideation. Psychiatry on consult Deferred rest of management per psychiatry (3) Anxiety: Plan: Continue home medications (4) Rheumatoid arthritis: Plan: Patient not on any medication, unable to take biologics due to prior severe reaction to vaccines previously. (5) Atrial fibrillation: Plan: Currently in NSR therefore paroxysmal Continue metoprolol Not on anticoagulation (6) CML (chronic myelocytic leukemia): Plan: Dasatinib 100mg PO once daily (7) Hypokalemia: Plan: Serum K 2.9 will replace with PO Potassium chloride 40meq Re check BMP Plan: Inpatient psych if her covid is negative x 2 Admission and Anticipated Discharge Date Admission Date: January 17, 2021 Subjective Patient seen and examined this morning, has a one-to-one sitter by the bedside, still has some anxiety, was erroneously informed that her repeat covid was negative Review of Systems Review of Systems: All systems reviewed are negative, apart from the ones contained in the history. Physical Exam Physical Exam: The patient is awake, alert and oriented 3, well developed and well nourished, normocephalic and atraumatic, lying in bed and in no acute distress. HEENT--PERRL, EOMI, mucous membranes and oropharynx mildly dry Neck--supple. No JVD. No bruits. Thyroid normal, trachea midline, no adenopathy. Heart--normal S1 and S2. No murmurs, rubs or gallops. Lungs--clear bilaterally, no respiratory distress, no accessory muscle use. Abdomen--normal bowel sounds and soft. Mild epigastric and left sided abdominal pain Extremities--no cyanosis or clubbing. No edema. Dermatologic--normal skin turgor, normal color, no abnormal lymph nodes, no rash. Neurologic--cranial nerves II through XII grossly intact. Rheumatologic--normal range of motion. Psychiatric--anxiety. Results & Data Results & Data ([facility]) Vital Signs (Past 12 Hours) Vital Signs Temp Pulse Resp BP Pulse Ox 01/19/21 08:19 98.6 F 83 16 107/68 91 Laboratory Results Laboratory Results - last 24 hr 01/18/21 01/19/21 Unknown 06:40 Sodium 139 Potassium 2.9 L Chloride 107 Carbon Dioxide 24 Anion Gap 9.0 BUN 8 Creatinine 0.68 Est Cr Clr Drug Dosing 68.9 Est GFR ( Amer) 112.5 Est GFR (Non-Af Amer) 97.1 BUN/Creatinine Ratio 12.0 Glucose 83 Calcium 8.5 RSV (Molecular) Negative PG Care Time/CCT Total # of Minutes Spent Total Time Spent with Patient: Total time spent is greater than 50% in coordination of care (as documented) at patient's floor/unit and/or counseling patient: Coding Level of Care Code 94226 Subseq Hosp Care Lvl 2 Diagnoses SARS-CoV-2 positive U07.1 Suicidal ideation R45.851 Anxiety F41.9 Rheumatoid arthritis M06.9 Atrial fibrillation I48.91 CML (chronic myelocytic leukemia) C92.10 Hypokalemia E87.6
[2021-01-19] MEDS: hydrOXYzine HCl 10 MG TAB PO PRN (14:46)
[2021-01-19] MEDS: [UNRECOGNIZED DRUG - REMARK] PO SCH (16:43)
[2021-01-19] MEDS: PANTOprazole 40 MG TAB PO SCH (22:26)
[2021-01-20] MEDS: MIRTAZAPINE TAB 15 MG TAB PO SCH ×2 (00:27→23:23)
[2021-01-20] MEDS: hydrOXYzine HCl 10 MG TAB PO PRN (00:28)
[2021-01-20 07:45] LABS: BUN Creatinine Ratio 12.6 (10-20); Calcium 8.6 mg/dl (8.5-10.1); Creatinine Clr Calc Pharmacy 69.9 ml/min; Est GFR (African American) 113.1 ml/min; Est GFR (Non-African American) 97.6 ml/min; Potassium 3.1 mmol/L (3.5-5.1)
[2021-01-20 07:55] LABS: Thyroid Stimulating Hormone 1.97 uIu/ml (0.300-4.500)
[2021-01-20] MEDS: ACYCLOVIR 400 MG TAB PO SCH ×2 (10:07→20:14)
[2021-01-20] MEDS: METOPROLOL SUCC 25MG EXT REL TAB PO SCH ×2 (10:08→20:14)
[2021-01-20] MEDS: PANTOprazole 40 MG in SYRINGE 0 ML IV SCH (11:14)
[2021-01-20] MEDS ORDERED: POTASSIUM CHLORIDE CRTAB 20 MEQ TABCR PO STA (11:35)
--- NOTE | 2021-01-20 11:41 | Hospitalist Progress Note ---
Date of Service January 20, 2021 Assessment & Plan (1) SARS-CoV-2 positive: Plan: Patient has been re swabbed for COVID 19 Result currently pending Patient remains on room air and asymptomatic (2) Suicidal ideation: Plan: Severe depression with suicidal ideation. Psychiatry on consult Deferred rest of management per psychiatry (3) Anxiety: Plan: Continue home medications (4) Rheumatoid arthritis: Plan: Patient not on any medication, unable to take biologics due to prior severe reaction to vaccines previously. (5) Atrial fibrillation: Plan: Currently in NSR therefore paroxysmal Continue metoprolol Not on anticoagulation (6) CML (chronic myelocytic leukemia): Plan: Dasatinib 100mg PO once daily (7) Hypokalemia: Plan: Serum K 3.1 today will replace with PO Potassium chloride 40meq Re check BMP Plan: Inpatient psych if her covid is negative x 2 Admission and Anticipated Discharge Date Admission Date: January 17, 2021 Subjective Patient seen and examined this morning, has a one-to-one sitter by the bedside, no new complaints Review of Systems Review of Systems: All systems reviewed are negative, apart from the ones contained in the history. Physical Exam Physical Exam: The patient is awake, alert and oriented 3, well developed and well nourished, normocephalic and atraumatic, lying in bed and in no acute distress. HEENT--PERRL, EOMI, mucous membranes and oropharynx mildly dry Neck--supple. No JVD. No bruits. Thyroid normal, trachea midline, no adenopathy. Heart--normal S1 and S2. No murmurs, rubs or gallops. Lungs--clear bilaterally, no respiratory distress, no accessory muscle use. Abdomen--normal bowel sounds and soft. Mild epigastric and left sided abdominal pain Extremities--no cyanosis or clubbing. No edema. Dermatologic--normal skin turgor, normal color, no abnormal lymph nodes, no rash. Neurologic--cranial nerves II through XII grossly intact. Rheumatologic--normal range of motion. Psychiatric--anxiety. Results & Data Results & Data ([facility]) Laboratory Results Laboratory Results - last 24 hr 01/19/21 01/20/21 Unknown 07:02 Sodium 139 Potassium 3.1 L Chloride 109 H Carbon Dioxide 24 Anion Gap 6.0 BUN 8 Creatinine 0.67 Est Cr Clr Drug Dosing 69.9 Est GFR ( Amer) 113.1 Est GFR (Non-Af Amer) 97.6 BUN/Creatinine Ratio 12.6 Glucose 91 Calcium 8.6 TSH 1.970 SARS-CoV-2 RNA ([facility]) Pending PG Care Time/CCT Total # of Minutes Spent Total Time Spent with Patient: Total time spent is greater than 50% in coordination of care (as documented) at patient's floor/unit and/or counseling patient: Coding Level of Care Code 98803 Subseq Hosp Care Lvl 2 Diagnoses SARS-CoV-2 positive U07.1 Suicidal ideation R45.851 Anxiety F41.9 Rheumatoid arthritis M06.9 Atrial fibrillation I48.91 CML (chronic myelocytic leukemia) C92.10 Hypokalemia E87.6
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
[2021-01-20] MEDS: [UNRECOGNIZED DRUG - REMARK] PO SCH (15:59)
[2021-01-20] MEDS: ACETAMINOPHEN 325 MG TAB PO PRN (20:12)
[2021-01-20] MEDS: PANTOprazole 40 MG TAB PO SCH (20:14)
[2021-01-20] MEDS: hydrOXYzine HCl 25 MG TAB PO PRN (23:24)
[2021-01-21] MEDS ORDERED: POTASSIUM CHLORIDE CRTAB 20 MEQ TABCR PO STA (07:28)
[2021-01-21 08:09] LABS: BUN Creatinine Ratio 15.4 (10-20); Calcium 8.6 mg/dl (8.5-10.1); Creatinine Clr Calc Pharmacy 60.8 ml/min; Est GFR (African American) 99.3 ml/min; Est GFR (Non-African American) 85.7 ml/min
[2021-01-21] MEDS: ACYCLOVIR 400 MG TAB PO SCH ×2 (09:32→21:43)
[2021-01-21] MEDS: METOPROLOL SUCC 25MG EXT REL TAB PO SCH ×2 (09:32→21:44)
--- NOTE | 2021-01-21 11:28 | Hospitalist Progress Note ---
Date of Service January 21, 2021 Assessment & Plan (1) SARS-CoV-2 positive: Plan: Patient has been re swabbed for COVID 19 and result came back positive Patient remains on room air and asymptomatic However, will serve out her quarantine before she can be admitted to inpatient psych patient may even be discharged from the hospital if deemed stable by Psych (2) Suicidal ideation: Plan: Severe depression with suicidal ideation. Psychiatry on consult Deferred rest of management per psychiatry (3) Anxiety: Plan: Continue home medications (4) Rheumatoid arthritis: Plan: Patient not on any medication, unable to take biologics due to prior severe reaction to vaccines previously. (5) Atrial fibrillation: Plan: Currently in NSR therefore paroxysmal Continue metoprolol Not on anticoagulation (6) CML (chronic myelocytic leukemia): Plan: Dasatinib 100mg PO once daily (7) Hypokalemia: Plan: Serum K 3.1 today will replace with PO Potassium chloride 40meq Re check BMP Plan: Inpatient psych if her covid is negative x 2 Admission and Anticipated Discharge Date Admission Date: January 17, 2021 Subjective Patient seen and examined this morning, has a one-to-one sitter by the bedside, no new complaints Review of Systems Review of Systems: All systems reviewed are negative, apart from the ones contained in the history. Physical Exam Physical Exam: The patient is awake, alert and oriented 3, well developed and well nourished, normocephalic and atraumatic, lying in bed and in no acute distress. HEENT--PERRL, EOMI, mucous membranes and oropharynx mildly dry Neck--supple. No JVD. No bruits. Thyroid normal, trachea midline, no adenopathy. Heart--normal S1 and S2. No murmurs, rubs or gallops. Lungs--clear bilaterally, no respiratory distress, no accessory muscle use. Abdomen--normal bowel sounds and soft. Mild epigastric and left sided abdominal pain Extremities--no cyanosis or clubbing. No edema. Dermatologic--normal skin turgor, normal color, no abnormal lymph nodes, no rash. Neurologic--cranial nerves II through XII grossly intact. Rheumatologic--normal range of motion. Psychiatric--anxiety. Results & Data Results & Data ([facility]) Vital Signs (Past 12 Hours) Vital Signs Temp Pulse Resp BP Pulse Ox 01/21/21 10:45 99.7 F H 88 19 115/69 94 01/21/21 06:42 99.7 F H 85 18 100/65 99 Laboratory Results Laboratory Results - last 24 hr 01/19/21 01/21/21 Unknown 07:25 Sodium 140 Potassium 4.0 D Chloride 109 H Carbon Dioxide 27 Anion Gap 4.0 BUN 12 Creatinine 0.77 Est Cr Clr Drug Dosing 60.8 Est GFR ( Amer) 99.3 Est GFR (Non-Af Amer) 85.7 BUN/Creatinine Ratio 15.4 Glucose 97 Calcium 8.6 SARS-CoV-2 RNA ([facility]) POSITIVE A* PG Care Time/CCT Total # of Minutes Spent Total Time Spent with Patient: Total time spent is greater than 50% in coordination of care (as documented) at patient's floor/unit and/or counseling patient: Coding Level of Care Code 98178 Subseq Hosp Care Lvl 2 Diagnoses SARS-CoV-2 positive U07.1 Suicidal ideation R45.851 Anxiety F41.9 Rheumatoid arthritis M06.9 Atrial fibrillation I48.91 CML (chronic myelocytic leukemia) C92.10 Hypokalemia E87.6
[2021-01-21] MEDS: PANTOprazole 40 MG in SYRINGE 0 ML IV SCH (11:57)
--- NOTE | 2021-01-21 13:18 | Psychiatric Progress Note ---
Date of Service January 21, 2021 Impression / Recommendations Impression 55 yo female with CML, sent to ED for SI with plan, reported fever and found COVID+. Diagnostically severe depression with anxiety component, seems to be some cluster B traits including splitting, black and white thinking. 01/21/21: reviewed interim progress, finding mirtazapine and atarax very helpful for mood symptoms. (1) Suicidal ideation: (2) Major depression, recurrent: (3) SARS-CoV-2 positive: (4) CML (chronic myelocytic leukemia): 01/21/21: reviewed interim progress. Continue with Mirtazapine 15 mg qhs and atarax 25 mg q6h prn. Continue 1:1 observation, safe to shower from a psychiatric standpoint. Looking into housing options. 01/20/21: titrate Remeron and Vistaril (reports 10 mg minimally effective). [facility] info per liaison. Continue 1-on-1 but appropriate to shower if able. 01/19/21: session took place with health care social worker and liaison to decrease splitting. Continue medications unchanged. 01/18/21: verify if had thyroid panel as typical psych clearance continue 1-on-1, should not be allowed to leave hospital AMA given potential lethality of plan and no coordinated safety plan at this time re: Tom, d/c in favor of trial of hydroxyzine 10 mg q6 prn. Lower dose given size and QTc risk with antiemetics. Risks/benefits/alternatives reviewed re: antidepressants for the treatment of depression and/or anxiety. The patient agreed to a trial of Remeron 7.5 mg starting this hs. Risk Factors Assessment Do You Have Access To A Gun?: No Interval History Identifying Information 55 yo female with CML admit 01/17/21 for fever, COVID+, suicidal ideation with plan. Chief Complaint "Housing is my biggest stressor". Review of Systems Notes sleep well, eating more Telehealth Telehealth Options: Telephone only For the duration of the visit, provider was performing the assessment from: The same facility as the patient After establishing a telemedicine visit, patient was: Patient was verified with two unique identifiers, Patient/authorized rep acknowledged consent and u nderstanding and Gave permission to continue telehealth session Total Time Spent (minutes): 25 Subjective Subjective Patient was seen & assessed and interval progress reviewed with treatment team, myself nursing and social work joined telemedicine phone call with patient. Today she notes improvement in mood and feels the medication is very helpful. Continues to have some nausea which has been a chronic problem but she's been able to eat two meals per day. Denies medication side effects. Denies current SI. Feels the biggest driving factor for her depression and SI is her lack of housing/housing stress. Slept 6.5 hours last week which she's very pleased about. Frustrated she hasn't been able to shower. Physical Exam Psychiatric Orientation: alert and oriented x 3 Apperance: appropriately dressed and appropriately groomed Speech: normal rate/rhythm/volume of speech Mood: + depressed mood and + anxious mood Thought Process: goal directed thought process Thought Content: reality based without delusions Suicidal Thoughts: denies suicidal thoughts, denies suicidal plan and denies suicidal intent Homicidal Thoughts: denies homicidal thoughts Hallucinations: no auditory hallucinations and no visual hallucinations Cognition: attention grossly intact and language grossly intact Estimated Intelligence: consistent with education level Insight: + fair insight Judgement: + fair judgement Vital Signs (Past 24 Hours) Last Vital Signs Temp 37.6 C H 01/21/21 10:45 Pulse 88 01/21/21 10:45 Resp 19 01/21/21 10:45 BP 115/69 01/21/21 10:45 Pulse Ox 94 01/21/21 10:45 Results & Data ([facility] [[email or web address] Laboratory Results Laboratory Results - last 24 hr 01/19/21 01/21/21 Unknown 07:25 Sodium 140 Potassium 4.0 D Chloride 109 H Carbon Dioxide 27 Anion Gap 4.0 BUN 12 Creatinine 0.77 Est Cr Clr Drug Dosing 60.8 Est GFR ( Amer) 99.3 Est GFR (Non-Af Amer) 85.7 BUN/Creatinine Ratio 15.4 Glucose 97 Calcium 8.6 SARS-CoV-2 RNA ([facility]) POSITIVE A* Current Inpatient Medications Current Inpatient Medications: Current Inpatient Medications Acetaminophen (Acetaminophen 325 Mg Tab) 650 mg PO Q4H PRN PRN Reason: Pain or Fever Stop: 02/17/21 00:53 Last Admin: 01/20/21 20:12 Dose: 650 mg Documented by: Acyclovir (Acyclovir 400 Mg Tab) 400 mg PO BID [facility] Stop: 02/16/21 20:59 Last Admin: 01/21/21 09:32 Dose: 400 mg Documented by: Haloperidol (Haloperidol 1 Mg Tab) 1 mg PO Q4H PRN PRN Reason: Nausea &/or Vomiting Stop: 02/17/21 00:57 Hydroxyzine HCl (Hydroxyzine Hcl 25 Mg Tab) 25 mg PO Q6 PRN PRN Reason: Anxiety Stop: 02/17/21 16:32 Last Admin: 01/20/21 23:24 Dose: 25 mg Documented by: Pantoprazole Sodium 40 mg/ (Syringe) 10 mls @ 5 mls/min IV DAILY@1100 [facility] Stop: 02/17/21 00:54 Last Admin: 01/21/21 11:57 Dose: 5 mls/min Documented by: Prochlorperazine 5 mg/ Syringe 5 mls @ 5 mls/min IV Q6H PRN PRN Reason: Nausea And Vomiting Stop: 02/18/21 20:24 Metoprolol Succinate (Metoprolol Succ 25mg Ext Rel Tab) 25 mg PO BID [facility] Stop: 02/16/21 20:59 Last Admin: 01/21/21 09:32 Dose: 25 mg Documented by: Mirtazapine (Mirtazapine Tab 15 Mg Tab) 15 mg PO HS [facility] Stop: 02/19/21 20:59 Last Admin: 01/20/21 23:23 Dose: 15 mg Documented by: *Dasatinib*Non-Form (Patient's Own Med) 1 ea PO DAILY [facility] Stop: 02/16/21 16:29 Last Admin: 01/20/21 15:59 Dose: 2 tab Documented by: Ondansetron HCl (Ondansetron Inj 2 Mg/Ml 2 Ml Vial) 4 mg IV Q6H PRN PRN Reason: Nausea Stop: 02/17/21 00:53 Ondansetron HCl (Ondansetron 4 Mg Od Tab) 4 mg SL Q4H PRN PRN Reason: Nausea &/or Vomiting Stop: 02/17/21 00:57 Pantoprazole Sodium (Pantoprazole 40 Mg Tab) 40 mg PO HS [facility] Stop: 02/16/21 22:34 Last Admin: 01/20/21 20:14 Dose: 40 mg Documented by: Promethazine HCl (Promethazine Hcl 25 Mg Tab) 12.5 mg PO Q6H PRN PRN Reason: Nausea &/or Vomiting Stop: 02/17/21 00:57 Last Admin: 01/19/21 16:39 Dose: 12.5 mg Documented by: Mental Health & Subst Abuse Tx Psychiatrist Name of Psychiatrist: Vanesa Banks PA-C, at [facility] Psych[facility]rist[facility] Date of Appointment with Psychiatrist: 02/08/21 Time of Appointment with Psychiatrist: 2:40 pm Psychiatric Appointment Comment: in person
[2021-01-21] MEDS: ACETAMINOPHEN 325 MG TAB PO PRN (15:31)
[2021-01-21] MEDS: [UNRECOGNIZED DRUG - REMARK] PO SCH (16:28)
[2021-01-21] MEDS: MIRTAZAPINE TAB 15 MG TAB PO SCH (21:44)
[2021-01-21] MEDS: PANTOprazole 40 MG TAB PO SCH (21:46)
[2021-01-22] MEDS: ACETAMINOPHEN 325 MG TAB PO PRN ×2 (03:50→23:40)
[2021-01-22] MEDS: PROCHLORPERAZINE 5 MG in SYRINGE 4 ML IV PRN ×2 (04:18→19:08)
[2021-01-22 08:15] LABS: BUN Creatinine Ratio 14.2 (10-20); Calcium 8.7 mg/dl (8.5-10.1); Creatinine Clr Calc Pharmacy 68.9 ml/min; Est GFR (African American) 112.5 ml/min; Est GFR (Non-African American) 97.1 ml/min; Potassium 3.9 mmol/L (3.5-5.1)
[2021-01-22] MEDS: ACYCLOVIR 400 MG TAB PO SCH ×2 (09:56→22:08)
[2021-01-22] MEDS: METOPROLOL SUCC 25MG EXT REL TAB PO SCH ×2 (10:03→22:09)
--- NOTE | 2021-01-22 10:21 | Hospitalist Progress Note ---
Date of Service January 22, 2021 Assessment & Plan (1) SARS-CoV-2 positive: Plan: Patient has been re swabbed for COVID 19 and result came back positive Patient remains on room air and asymptomatic However, will serve out her quarantine before she can be admitted to inpatient psych patient may even be discharged from the hospital if deemed stable by Psych Today is day 5 of admission (2) Suicidal ideation: Plan: Severe depression with suicidal ideation. Psychiatry on consult Deferred rest of management per psychiatry (3) Anxiety: Plan: Continue home medications (4) Rheumatoid arthritis: Plan: Patient not on any medication, unable to take biologics due to prior severe reaction to vaccines previously. (5) Atrial fibrillation: Plan: Currently in NSR therefore paroxysmal Continue metoprolol Not on anticoagulation (6) CML (chronic myelocytic leukemia): Plan: Dasatinib 100mg PO once daily (7) Hypokalemia: Plan: Resolved Plan: Inpatient psych when she sees out her quarantine Admission and Anticipated Discharge Date Admission Date: January 17, 2021 Subjective Patient seen and examined this morning, has a one-to-one sitter by the bedside, no new complaints Review of Systems Review of Systems: All systems reviewed are negative, apart from the ones contained in the history. Physical Exam Physical Exam: The patient is awake, alert and oriented 3, well developed and well nourished, normocephalic and atraumatic, lying in bed and in no acute distress. HEENT--PERRL, EOMI, mucous membranes and oropharynx mildly dry Neck--supple. No JVD. No bruits. Thyroid normal, trachea midline, no adenopathy. Heart--normal S1 and S2. No murmurs, rubs or gallops. Lungs--clear bilaterally, no respiratory distress, no accessory muscle use. Abdomen--normal bowel sounds and soft. Mild epigastric and left sided abdominal pain Extremities--no cyanosis or clubbing. No edema. Dermatologic--normal skin turgor, normal color, no abnormal lymph nodes, no rash. Neurologic--cranial nerves II through XII grossly intact. Rheumatologic--normal range of motion. Psychiatric--anxiety. Results & Data Results & [facility] ([facility]) Vital Signs (Past 12 Hours) Vital Signs Temp Pulse Resp BP Pulse Ox 01/22/21 10:00 86 96/67 L 01/22/21 07:10 98.2 F 79 16 90/54 L 96 01/22/21 05:52 98.4 F 01/22/21 05:20 100.0 F H 01/22/21 04:59 100.4 F H 01/22/21 03:37 100.8 F H Laboratory Results Laboratory Results - last 24 hr 01/22/21 07:25 Sodium 141 Potassium 3.9 Chloride 110 H Carbon Dioxide 22 Anion Gap 9.0 BUN 10 Creatinine 0.68 Est Cr Clr Drug Dosing 68.9 Est GFR ( Amer) 112.5 Est GFR (Non-Af Amer) 97.1 BUN/Creatinine Ratio 14.2 Glucose 107 H Calcium 8.7 PG Care Time/CCT Total # of Minutes Spent Total Time Spent with Patient: Total time spent is greater than 50% in coordination of care (as documented) at patient's floor/unit and/or counseling patient: Coding Level of Care Code 71614 Subseq Hosp Care Lvl 2 Diagnoses SARS-CoV-2 positive U07.1 Suicidal ideation R45.851 Anxiety F41.9 Rheumatoid arthritis M06.9 Atrial fibrillation I48.91 CML (chronic myelocytic leukemia) C92.10 Hypokalemia E87.6
[2021-01-22] MEDS: PANTOprazole 40 MG in SYRINGE 0 ML IV SCH (11:04)
--- NOTE | 2021-01-22 11:26 | Psychiatric Progress Note ---
Date of Service January 22, 2021 Impression / Recommendations Impression 55 yo female with CML, sent to ED for SI with plan, reported fever and found COVID+. Diagnostically severe depression with anxiety component, seems to be some cluster B traits including splitting, black and white thinking. 01/22/21: continues to find mirtazapine and atarax very helpful for mood symptoms though GI symptoms continue to contribute to periods of lower mood. Plan: reviewed potential resources for temporary housing and will discuss further with social work. (1) Suicidal ideation: (2) Major depression, recurrent: (3) SARS-CoV-2 positive: (4) CML (chronic myelocytic leukemia): 01/22/21: continue current medications. Continue 1:1. Investigating housing options. 01/21/21: reviewed interim progress. Continue with Mirtazapine 15 mg qhs and atarax 25 mg q6h prn. Continue 1:1 observation, safe to shower from a psychiatric standpoint. Looking into housing options. 01/20/21: titrate Remeron and Vistaril (reports 10 mg minimally effective). [facility] per liaison. Continue 1-on-1 but appropriate to shower if able. 01/19/21: session took place with social human services assistants and liaison to decrease splitting. Continue medications unchanged. 01/18/21: verify if had thyroid panel as typical psych clearance continue 1-on-1, should not be allowed to leave hospital AMA given potential lethality of plan and no coordinated safety plan at this time re: Tom, d/c in favor of trial of hydroxyzine 10 mg q6 prn. Lower dose given size and QTc risk with antiemetics. Risks/benefits/alternatives reviewed re: antidepressants for the treatment of depression and/or anxiety. The patient agreed to a trial of Remeron 7.5 mg starting this hs. Risk Factors Assessment Do You Have Access To A Gun?: No Interval History Identifying Information 55 yo female with CML admit 01/17/21 for fever, COVID+, suicidal ideation with plan. Chief Complaint "I really need permanent housing". Review of Systems Notes Reports poor sleep, fair appetite Telehealth Telehealth Options: Telephone only For the duration of the visit, provider was performing the assessment from: The same facility as the patient After establishing a telemedicine visit, patient was: Patient was verified with two unique identifiers, Patient/authorized rep acknowledged consent and understanding and Gave permission to continue telehealth session Subjective Subjective Patient was seen & assessed and interval progress reviewed with treatment team nursing and social work. Today she states her mood is "here" and she attributes having a difficult night due to waking up sick. She's unsure of this is from the mirtazapine or due to her chronic GI issues. Denies any other side effects. No SI. Continues to note that her most pressing concern is finding housing. Discussed that while we could ideally find her permanent housing that tends to be very difficult with limited resources so the only option may end up being temporary housing resources with the goal of eventually finding permanent housing in the future. Physical Exam Psychiatric Orientation: alert and oriented x 3 Speech: normal rate/rhythm/volume of speech Mood: + depressed mood Thought Process: goal directed thought process Thought Content: reality based without delusions Suicidal Thoughts: denies suicidal thoughts Homicidal Thoughts: denies homicidal thoughts Hallucinations: no auditory hallucinations and no visual hallucinations Cognition: attention grossly intact and language grossly intact Estimated Intelligence: consistent with education level Insight: + fair insight Judgement: + fair judgement Vital Signs (Past 24 Hours) Last Vital Signs Temp 36.8 C 01/22/21 07:10 Pulse 86 01/22/21 10:00 Resp 16 01/22/21 07:10 BP 96/67 L 01/22/21 10:00 Pulse Ox 96 01/22/21 07:10 Results & Data ([facility]) Laboratory Results Laboratory Results - last 24 hr 01/22/21 07:25 Sodium 141 Potassium 3.9 Chloride 110 H Carbon Dioxide 22 Anion Gap 9.0 BUN 10 Creatinine 0.68 Est Cr Clr Drug Dosing 68.9 Est GFR ( Amer) 112.5 Est GFR (Non-Af Amer) 97.1 BUN/Creatinine Ratio 14.2 Glucose 107 H Calcium 8.7 Current Inpatient Medications Current Inpatient Medications: Current Inpatient Medications Acetaminophen (Acetaminophen 325 Mg Tab) 650 mg PO Q4H PRN PRN Reason: Pain or Fever Stop: 02/17/21 00:53 Last Admin: 01/22/21 03:50 Dose: 650 mg Documented by: Acyclovir (Acyclovir 400 Mg Tab) 400 mg PO BID [facility] Stop: 02/16/21 20:59 Last Admin: 01/22/21 09:56 Dose: 400 mg Documented by: Haloperidol (Haloperidol 1 Mg Tab) 1 mg PO Q4H PRN PRN Reason: Nausea &/or Vomiting Stop: 02/17/21 00:57 Hydroxyzine HCl (Hydroxyzine Hcl 25 Mg Tab) 25 mg PO Q6 PRN PRN Reason: Anxiety Stop: 02/17/21 16:32 Last Admin: 01/20/21 23:24 Dose: 25 mg Documented by: Pantoprazole Sodium 40 mg/ (Syringe) 10 mls @ 5 mls/min IV DAILY@1100 [facility] Stop: 02/17/21 00:54 Last Admin: 01/22/21 11:04 Dose: 5 mls/min Documented by: Prochlorperazine 5 mg/ Syringe 5 mls @ 5 mls/min IV Q6H PRN PRN Reason: Nausea And Vomiting Stop: 02/18/21 20:24 Last Admin: 01/22/21 04:18 Dose: 5 mls/min Documented by: Metoprolol Succinate (Metoprolol Succ 25mg Ext Rel Tab) 25 mg PO BID [facility] Stop: 02/16/21 20:59 Last Admin: 01/22/21 10:03 Dose: Not Given Documented by: Mirtazapine (Mirtazapine Tab 15 Mg Tab) 15 mg PO HS [facility] Stop: 02/19/21 20:59 Last Admin: 01/21/21 21:44 Dose: 15 mg Documented by: *Dasatinib*Non-Form (Patient's Own Med) 1 ea PO DAILY [facility] Stop: 02/16/21 16:29 Last Admin: 01/21/21 16:28 Dose: 2 tab Documented by: Ondansetron HCl (Ondansetron Inj 2 Mg/Ml 2 Ml Vial) 4 mg IV Q6H PRN PRN Reason: Nausea Stop: 02/17/21 00:53 Ondansetron HCl (Ondansetron 4 Mg Od Tab) 4 mg SL Q4H PRN PRN Reason: Nausea &/or Vomiting Stop: 02/17/21 00:57 Pantoprazole Sodium (Pantoprazole 40 Mg Tab) 40 mg PO HS [facility] Stop: 02/16/21 22:34 Last Admin: 01/21/21 21:46 Dose: 40 mg Documented by: Promethazine HCl (Promethazine Hcl 25 Mg Tab) 12.5 mg PO Q6H PRN PRN Reason: Nausea &/or Vomiting Stop: 02/17/21 00:57 Last Admin: 01/19/21 16:39 Dose: 12.5 mg Documented by: Mental Health & Subst Abuse Tx Psychiatrist Name of Psychiatrist: Vanesa Banks PA-C, at [facility] Psychiatrist's Date of Appointment with Psychiatrist: 02/08/21 Time of Appointment with Psychiatrist: 2:40 pm Psychiatric Appointment Comment: in person
[2021-01-22 12:45] LABS: BUN Creatinine Ratio 13.5 (10-20); Calcium 8.8 mg/dl (8.5-10.1); Est GFR (African American) 109.6 ml/min; Est GFR (Non-African American) 94.6 ml/min
[2021-01-22] MEDS: [UNRECOGNIZED DRUG - REMARK] PO SCH (16:07)
[2021-01-22] MEDS: hydrOXYzine HCl 25 MG TAB PO PRN (16:48)
[2021-01-22] MEDS: PANTOprazole 40 MG TAB PO SCH (22:08)
[2021-01-22] MEDS: MIRTAZAPINE TAB 15 MG TAB PO SCH (22:09)
[2021-01-23] MEDS: ACYCLOVIR 400 MG TAB PO SCH ×2 (09:00→21:36)
[2021-01-23] MEDS: METOPROLOL SUCC 25MG EXT REL TAB PO SCH ×2 (09:00→21:37)
[2021-01-23 10:33] LABS: BUN Creatinine Ratio 14.9 (10-20); Calcium 8.8 mg/dl (8.5-10.1); Creatinine Clr Calc Pharmacy 55.1 ml/min; Est GFR (African American) 88.2 ml/min; Est GFR (Non-African American) 76.1 ml/min; Potassium 3.5 mmol/L (3.5-5.1)
[2021-01-23 10:36] LABS: C Reactive Protein 0.31 mg/dl (0-0.29)
[2021-01-23 10:39] LABS: Hematocrit (blood only) 34.3 % (37-47); Hemoglobin 11.4 g/dL (12.0-16.0); Mean Corpuscular Hemoglobin 30.6 pg (25-34); Mean Corpuscular Hgb Conc 33.2 g/dL (32-36); Mean Corpuscular Volume 92.2 fL (80-100); Mean Platelet Volume 11.2 fL (7.4-10.4); Platelet Count 75 K/uL (130-400); RDW Coefficient of Variation 16.4 % (11.5-14.5); RDW Standard Deviation 55.4 fL (36.4-46.3); Red Blood Count 3.72 M/uL (4.2-5.4); White Blood Count 1.14 K/uL (4.8-10.8)
[2021-01-23 10:43] LABS: Basophils # (auto) 0.01 K/uL (0-0.2); Basophils % (auto) 0.9 %; Lymphocytes # (auto) 0.47 K/uL (1.2-3.4); Lymphocytes % (auto) 41.2 %; Monocytes # (auto) 0.11 K/uL (0.11-0.59); Monocytes % (auto) 9.6 %; Neutrophils # (auto) 0.55 K/uL (1.4-6.5); Neutrophils % (auto) 48.3 %; Platelet Estimate Decreased (Normal)
[2021-01-23] MEDS: PANTOprazole 40 MG in SYRINGE 0 ML IV SCH (11:04)
--- NOTE | 2021-01-23 14:45 | Psychiatric Progress Note ---
Date of Service January 23, 2021 Impression / Recommendations Impression 55 yo female with CML, sent to ED for SI with plan, reported fever and found COVID+. Diagnostically severe depression with anxiety component, seems to be some cluster B traits including splitting, black and white thinking. 01/23/21: continues to have progress with improvement in mood and finding medications helpful. Plan: reviewed potential resources for temporary housing which she follow-up with and discussed safety planning which she will work on and review with psych liason. (1) Suicidal ideation: (2) Major depression, recurrent: (3) SARS-CoV-2 positive: (4) CML (chronic myelocytic leukemia): 01/23/21: continue medications. Discussed having atarax at discharge as TID prn as she finds this helpful. She will work on safety plan. She was given contact information for [facility] ([phone]). Continue 1:1 observation. 01/22/21: continue current medications. Continue 1:1. Investigating housing options. 01/21/21: reviewed interim progress. Continue with Mirtazapine 15 mg qhs and atarax 25 mg q6h prn. Continue 1:1 observation, safe to shower from a psychiatric standpoint. Looking into housing options. 01/20/21: titrate Remeron and Vistaril (reports 10 mg minimally effective). [facility] info per liaison. Continue 1-on-1 but appropriate to shower if able. 01/19/21: session took place with dialysis social worker and liaison to decrease split ting. Continue medications unchanged. 01/18/21: verify if had thyroid panel as typical psych clearance continue 1-on-1, should not be allowed to leave hospital AMA given potential lethality of plan and no coordinated safety plan at this time re: Tom, d/c in favor of trial of hydroxyzine 10 mg q6 prn. Lower dose given size and QTc risk with antiemetics. Risks/benefits/alternatives reviewed re: antidepressants for the treatment of depression and/or anxiety. The patient agreed to a trial of Remeron 7.5 mg starting this hs. Risk Factors Assessment Do You Have Access To A Gun?: No Interval History Identifying Information 55 yo female with CML admit 01/17/21 for fever, COVID+, suicidal ideation with plan. Chief Complaint "I'm not too bad". Review of Systems Notes Emdorses good sleep and appetite. Subjective Subjective Patient was seen & assessed and interval progress reviewed with treatment team nursing and social work. Today reports her mood is "not too bad". She slept well and continues to find the atarax and mirtazapine helpful. Denies any medication side effects. No SI. Attending to personal hygiene. Discussed potential temporary housing resource with caveat that she must reach out to them and that she will need to verify rules about COVID (i.e. length of quarantine or negative tests prior to admission). She has also been contacting some people about potential apartments for rent. She is agreeable to returning to the [facility] for a little while until she is no longer contagious from COVID as she discussed this with her partner. She's willing to work on her safety plan. Pleasant and cheerful today. Physical Exam Psychiatric Orientation: alert and oriented x 3 Speech: normal rate/rhythm/volume of speech Mood: + depressed mood and + anxious mood Thought Process: goal directed thought process Thought Content: reality based without delusions Suicidal Thoughts: denies suicidal thoughts Homicidal Thoughts: denies homicidal thoughts Hallucinations: no auditory hallucinations and no visual hallucinations Cognition: attention grossly intact and language grossly intact Estimated Intelligence: consistent with education level Insight: + fair insight Judgement: + fair judgement Vital Signs (Past 24 Hours) Last Vital Signs Temp 37.5 C 01/23/21 12:00 Pulse 88 01/23/21 12:00 Resp 18 01/23/21 12:00 BP 106/70 01/23/21 12:00 Pulse Ox 96 01/23/21 12:00 Results & Data ([facility]) Laboratory Results Laboratory Results - last 24 hr 01/23/21 01/23/21 09:48 09:48 WBC 1.14 L RBC 3.72 L Hgb 11.4 L Hct 34.3 L MCV 92.2 MCH 30.6 MCHC 33.2 RDW Std Deviation 55.4 H RDW Coeff of Elpidio 16.4 H Plt Count 75 L MPV 11.2 H Immature Gran % (Auto) 0.0 Neut % (Auto) 48.3 Lymph % (Auto) 41.2 [place] % (Auto) 9.6 Eos % (Auto) 0.0 Baso % (Auto) 0.9 Neut # (Auto) 0.55 L* Lymph # (Auto) 0.47 L [place] # (Auto) 0.11 Eos # (Auto) 0.00 Baso # (Auto) 0.01 Immature Gran # (Auto) 0.00 Platelet Estimate Decreased L Sodium 138 Potassium 3.5 Chloride 108 H Carbon Dioxide 25 Anion Gap 5.0 BUN 13 Creatinine 0.85 Est Cr Clr Drug Dosing 55.1 Est GFR ( Amer) 88.2 Est GFR (Non-Af Amer) 76.1 BUN/Creatinine Ratio 14.9 Glucose 105 H Calcium 8.8 AST 47 H ALT 38 C-Reactive Protein 0.31 H Current Inpatient Medications Current Inpatient Medications: Current Inpatient Medications Acetaminophen (Acetaminophen 325 Mg Tab) 650 mg PO Q4H PRN PRN Reason: Pain or Fever Stop: 02/17/21 00:53 Last Admin: 01/22/21 23:40 Dose: 650 mg Documented by: Acyclovir (Acyclovir 400 Mg Tab) 400 mg PO BID [facility] Stop: 02/16/21 20:59 Last Admin: 01/23/21 09:00 Dose: 400 mg Documented by: Haloperidol (Haloperidol 1 Mg Tab) 1 mg PO Q4H PRN PRN Reason: Nausea &/or Vomiting Stop: 02/17/21 00:57 Hydroxyzine HCl (Hydroxyzine Hcl 25 Mg Tab) 25 mg PO Q6 PRN PRN Reason: Anxiety Stop: 02/17/21 16:32 Last Admin: 01/22/21 16:48 Dose: 25 mg Documented by: Pantoprazole Sodium 40 mg/ (Syringe) 10 mls @ 5 mls/min IV DAILY@1100 [facility] Stop: 02/17/21 00:54 Last Admin: 01/23/21 11:04 Dose: 5 mls/min Documented by: Prochlorperazine 5 mg/ Syringe 5 mls @ 5 mls/min IV Q6H PRN PRN Reason: Nausea And Vomiting Stop: 02/18/21 20:24 Last Admin: 01/22/21 19:08 Dose: 5 mls/min Documented by: Metoprolol Succinate (Metoprolol Succ 25mg Ext Rel Tab) 25 mg PO BID [facility] Stop: 02/16/21 20:59 Last Admin: 01/23/21 09:00 Dose: 25 mg Documented by: Mirtazapine (Mirtazapine Tab 15 Mg Tab) 15 mg PO HS [facility] Stop: 02/19/21 20:59 Last Admin: 01/22/21 22:09 Dose: 15 mg Documented by: *Dasatinib*Non-Form (Patient's Own Med) 1 ea PO DAILY [facility] Stop: 02/16/21 16:29 Last Admin: 01/22/21 16:07 Dose: 2 tab Documented by: Ondansetron HCl (Ondansetron Inj 2 Mg/Ml 2 Ml Vial) 4 mg IV Q6H PRN PRN Reason: Nausea Stop: 02/17/21 00:53 Ondansetron HCl (Ondansetron 4 Mg Od Tab) 4 mg SL Q4H PRN PRN Reason: Nausea &/or Vomiting Stop: 02/17/21 00:57 Pantoprazole Sodium (Pantoprazole 40 Mg Tab) 40 mg PO HS [facility] Stop: 02/16/21 22:34 Last Admin: 01/22/21 22:08 Dose: 40 mg Documented by: Promethazine HCl (Promethazine Hcl 25 Mg Tab) 12.5 mg PO Q6H PRN PRN Reason: Nausea &/or Vomiting Stop: 02/17/21 00:57 Last Admin: 01/19/21 16:39 Dose: 12.5 mg Documented by: Mental Health & Subst Abuse Tx Psychiatrist Name of Psychiatrist: Vanesa Banks PA-C, at [facility] Psychiatrist's Date of Appointment with Psychiatrist: 02/08/21 Time of Appointment with Psychiatrist: 2:40 pm Psychiatric Appointment Comment: in person
[2021-01-23] MEDS: PROCHLORPERAZINE 5 MG in SYRINGE 4 ML IV PRN (15:49)
[2021-01-23] MEDS: [UNRECOGNIZED DRUG - REMARK] PO SCH (16:25)
[2021-01-23] MEDS: ACETAMINOPHEN 325 MG TAB PO PRN (17:02)
--- NOTE | 2021-01-23 17:58 | Hospitalist Progress Note ---
Date of Service January 23, 2021 Assessment & Plan (1) COVID-19 virus infection: Plan: to date has had minimal symptoms, but now having frequent fevers, poor appetite, nausea; on exam she has b/l rales worrisome for developing pneumonia she is unvaccinated, and is at risk of progressive disease given her immunocompromised state from CML repeat cxr in am defer on steroids/Remdesivir (no hypoxia, etc) - but low threshold for such she has had fevers since 01/17 -- difficult to say if due to CML or COVID - suspect latter as all symptoms/signs point towards active COVID thus, consider today ~day #7 of her illness add flutter valve add incentive alexsander (2) CML (chronic myelocytic leukemia): Plan: daily CBC follows with [place] low threshold for formal oncology consultation cont her dasatinib (3) Rheumatoid arthritis: Plan: now on any meds for such (4) Major depression, recurrent: Plan: psych consult appreciated recs noted (5) Suicidal ideation: Plan: 1:1 observation (6) Elevated AST (SGOT): Plan: 2nd to #1 check CPK in am to be completed (7) Pancytopenia: Plan: 2nd to #1 and/or #2 cbc in am neutropenic precautions (8) DVT prophylaxis: Plan: if platelets remain stable then add chemical DVT proph Plan: pt volume depleted - NS at 75cc/hr x 500cc bmp in am add pepcid IV for GI symptoms cont PPI as well Admission and Anticipated Discharge Date Admission Date: January 17, 2021 Subjective patient feels poorly febrile multiple times over the last 24 hours chills poor appetite liquid intake fair at best had nausea requiring anti-emetics today no respiratory symptoms no loss of taste or smell follows with [facility] for her CML was dx with CML in September 2020 initial WBC count was >100 at time of diagnosis patient is from the [place] area but was living with a friend in [facility] Review of Systems Review of Systems: gen - fevers, chills, fatigue CV - no chest pain or tightness pulm - no cough or dyspnea GI - no abd pain Physical Exam Physical Exam: gen - thin, NAD mouth - MM and lips dry neck - no JVD heart - RRR, s1 s2, no murmur lungs - bibasilar fine rales; occasional wheeze b/l abd - soft NT ND BS+; spleen tip palpable ext - no edema, pulses 2+ b/l lymph - no cervical lymph nodes b/l Results & Data Results & Data ([facility]) Vital Signs (Past 12 Hours) Vital Signs Temp Pulse Resp BP Pulse Ox 01/23/21 17:51 37.8 C H 100 H 01/23/21 16:14 38.0 C H 113 H 20 128/79 94 01/23/21 12:00 37.5 C 88 18 106/70 96 01/23/21 08:58 37.3 C 95 H 18 107/69 97 Laboratory Results Laboratory Results - last 24 hr 01/23/21 01/23/21 09:48 09:48 WBC 1.14 L RBC 3.72 L Hgb 11.4 L Hct 34.3 L MCV 92.2 MCH 30.6 MCHC 33.2 RDW Std Deviation 55.4 H RDW Coeff of Elpidio 16.4 H Plt Count 75 L MPV 11.2 H Immature Gran % (Auto) 0.0 Neut % (Auto) 48.3 Lymph % (Auto) 41.2 [place] % (Auto) 9.6 Eos % (Auto) 0.0 Baso % (Auto) 0.9 Neut # (Auto) 0.55 L* Lymph # (Auto) 0.47 L [place] # (Auto) 0.11 Eos # (Auto) 0.00 Baso # (Auto) 0.01 Immature Gran # (Auto) 0.00 Platelet Estimate Decreased L Sodium 138 Potassium 3.5 Chloride 108 H Carbon Dioxide 25 Anion Gap 5.0 BUN 13 Creatinine 0.85 Est Cr Clr Drug Dosing 55.1 Est GFR ( Amer) 88.2 Est GFR (Non-Af Amer) 76.1 BUN/Creatinine Ratio 14.9 Glucose 105 H Calcium 8.8 AST 47 H ALT 38 C-Reactive Protein 0.31 H PG Care Time/CCT Total # of Minutes Spent Total Time Spent with Patient: Total time spent is greater than 50% in coordination of care (as documented) at patient's floor/unit and/or counseling patient: Coding Level of Care Code 04256 Subseq Hosp Care Lvl 3 Diagnoses COVID-19 virus infection U07.1 CML (chronic myelocytic leukemia) C92.10 Rheumatoid arthritis M06.9 Major depression, recurrent F33.9 Suicidal ideation R45.851 Elevated AST (SGOT) R74.01 Pancytopenia D61.818 DVT prophylaxis Z29.9
[2021-01-23] MEDS ORDERED: SODIUM CHLORIDE 0.9% 500 ML IV SCH (18:00)
[2021-01-23] MEDS: PANTOprazole 40 MG TAB PO SCH (21:37)
[2021-01-23] MEDS: MIRTAZAPINE TAB 15 MG TAB PO SCH (21:37)
[2021-01-23] MEDS: FAMOTIDINE 20 MG in SYRINGE 3 ML IV SCH (21:38)
[2021-01-23] MEDS: hydrOXYzine HCl 25 MG TAB PO PRN (21:52)
[2021-01-24] MEDS: PROCHLORPERAZINE 5 MG in SYRINGE 4 ML IV PRN ×2 (05:38→21:58)
[2021-01-24] MEDS: ACETAMINOPHEN 325 MG TAB PO PRN ×2 (05:39→22:40)
[2021-01-24 07:57] LABS: Hematocrit (blood only) 31.2 % (37-47); Hemoglobin 10.5 g/dL (12.0-16.0); Mean Corpuscular Hgb Conc 33.7 g/dL (32-36); RDW Coefficient of Variation 16.4 % (11.5-14.5); RDW Standard Deviation 55.2 fL (36.4-46.3); Red Blood Count 3.39 M/uL (4.2-5.4); White Blood Count 1.58 K/uL (4.8-10.8)
[2021-01-24 08:27] LABS: Mean Platelet Volume 10.4 fL (7.4-10.4); Platelet Count 74 K/uL (130-400)
[2021-01-24 08:29] LABS: BUN Creatinine Ratio 18.3 (10-20); Calcium 8.3 mg/dl (8.5-10.1); Creatinine Clr Calc Pharmacy 61.9 ml/min; Est GFR (Non-African American) 91.4 ml/min; Lymphocytes # (auto) 0.48 K/uL (1.2-3.4); Lymphocytes % (auto) 30.4 %; Monocytes # (auto) 0.14 K/uL (0.11-0.59); Monocytes % (auto) 8.9 %; Neutrophils # (auto) 0.96 K/uL (1.4-6.5); Neutrophils % (auto) 60.7 %; Platelet Estimate Decreased (Normal); Potassium 3.7 mmol/L (3.5-5.1)
[2021-01-24] MEDS: METOPROLOL SUCC 25MG EXT REL TAB PO SCH ×2 (08:54→22:02)
[2021-01-24] MEDS: ACYCLOVIR 400 MG TAB PO SCH ×2 (08:59→22:41)
[2021-01-24] MEDS: FAMOTIDINE 20 MG in SYRINGE 3 ML IV SCH ×2 (09:00→22:07)
--- NOTE | 2021-01-24 10:24 | XRay Report ---
SINGLE VIEW CHEST CLINICAL HISTORY: Covid. Rales on physical examination. FINDINGS: An AP, portable, upright chest radiograph is compared to study dated 01/17/2021. The cardiom ediastinal silhouette is unremarkable. There are faint airspace opacities at both lung bases. No larg e pleural effusion or pneumothorax is seen. The bony thorax is grossly intact. IMPRESSION: Faint bibasilar airspace opacities likely represent a mild infectious/inflammatory pneumo nitis. Radiographic follow-up to resolution is recommended. ACT 112: Negative or not required by law. Electronically signed by: Abiodun Ugarte M.D. 01/24/2021 10:22 AM
--- NOTE | 2021-01-24 14:55 | Psychiatric Progress Note ---
Date of Service January 24, 2021 Impression / Recommendations Impression 55 yo female with CML, sent to ED for SI with plan, reported fever and found COVID+. Diagnostically severe depression with anxiety component, seems to be some cluster B traits including splitting, black and white thinking. 01/24/21: Stable from a psychiatric standpoint, no longer at acute risk of harm to self given multiple days with no SI and improvement in sleep and mood with medication. Plan: review safety plan with psych liamary hernandez, has psych outpt follow-up set up. (1) Suicidal ideation: (2) Major depression, recurrent: (3) SARS-CoV-2 positive: (4) CML (chronic myelocytic leukemia): 01/24/21: continue medications. At discharge will need: mirtazapine 15mg qHS (30 days, 0 refills), vistaril 25mg TID prn (90 tabs, 0 refills). Can discontinue 1:1 as she has had multiple days without SI. Safety plan will be completed david. 01/23/21: continue medications. Discussed having atarax at discharge as TID prn as she finds this helpful. She will work on safety plan. She was given contact information for [facility] ([phone]). Continue 1:1 observation. 01/22/21: continue current medications. Continue 1:1. Investigating housing options. 01/21/21: reviewed interim progress. Continue with Mirtazapine 15 mg qhs and atarax 25 mg q6h prn. Continue 1:1 observation, safe to shower from a psychiatric standpoint. Looking into housing options. 01/20/21: titrate Remeron and Vistaril (reports 10 mg minimally effective). [facility] info per liaison. Continue 1-on-1 but appropriate to shower if able. 01/19/21: session took place with director social welfare and liaison to decrease splitting. Continue medications unchanged. 01/18/21: verify if had thyroid panel as typical psych clearance continue 1-on-1, should not be allowed to leave hospital AMA given potential lethality of plan and no coordinated safety plan at this time re: Klonopin, d/c in favor of trial of hydroxyzine 10 mg q6 prn. Lower dose given size and QTc risk with antiemetics. Risks/benefits/alternatives reviewed re: antidepressants for the treatment of depression and/or anxiety. The patient agreed to a trial of Remeron 7.5 mg starting this hs. Risk Factors Assessment Do You Have Access To A Gun?: No Interval History Identifying Information 55 yo female with CML admit 01/17/21 for fever, COVID+, suicidal ideation with plan. Chief Complaint "I'm ok". Review of Systems Notes Reports stable sleep and appetite. Telehealth Telehealth Options: Telephone only Subjective Subjective Patient was seen & assessed and interval progress reviewed with treatment team nursing and social work. She says she's upset because she found out her boyfriend is being transferred to the hospital in [place]. Otherwise her mood has been "ok". She declined safety planning with our staff yesterday due to fatigue but agrees to do it tonight. She hasn't had a chance to call [facility] because she's decided she'd rather go home to the [facility] once she's medically safe for discharge. [place] appointment is set up for Feb 08 at 2:30pm for psych follow up. She continues to find psych medications helpful. Continues to have stable mood with no SI. Physical Exam Psychiatric Orientation: alert and oriented x 3 Speech: normal rate/rhythm/volume of speech Mood: + anxious mood; no depressed mood Thought Process: linear/logical thought process Thought Content: reality based without delusions Suicidal Thoughts: denies suicidal thoughts Homicidal Thoughts: denies homicidal thoughts Hallucinations: no auditory hallucinations and no visual hallucinations Cognition: recent memory grossly intact, remote memory grossly intact, attention grossly intact and language grossly intact Insight: + fair insight Judgement: + fair judgement Vital Signs (Past 24 Hours) Last Vital Signs Temp 37.3 C 01/24/21 07:30 Pulse 62 01/24/21 08:51 Resp 18 01/24/21 07:30 BP 99/61 L 01/24/21 08:51 Pulse Ox 94 01/24/21 08:51 Results & Data ([facility]) Laboratory Results Laboratory Results - last 24 hr 01/24/21 01/24/21 07:24 07:24 WBC 1.58 L RBC 3.39 L Hgb 10.5 L Hct 31.2 L MCV 92.0 MCH 31.0 MCHC 33.7 RDW Std Deviation 55.2 H RDW Coeff of Elpidio 16.4 H Plt Count 74 L MPV 10.4 Immature Gran % (Auto) 0.0 Neut % (Auto) 60.7 Lymph % (Auto) 30.4 [place] % (Auto) 8.9 Eos % (Auto) 0.0 Baso % (Auto) 0.0 Neut # (Auto) 0.96 L* Lymph # (Auto) 0.48 L [place] # (Auto) 0.14 Eos # (Auto) 0.00 Baso # (Auto) 0.00 Immature Gran # (Auto) 0.00 Platelet Estimate Decreased L Sodium 140 Potassium 3.7 Chloride 110 H Carbon Dioxide 21 Anion Gap 9.0 BUN 13 Creatinine 0.73 Est Cr Clr Drug Dosing 61.9 Est GFR ( Amer) 106.0 Est GFR (Non-Af Amer) 91.4 BUN/Creatinine Ratio 18.3 Glucose 97 Calcium 8.3 L AST 39 H Total Creatine Kinase 50 Current Inpatient Medications Current Inpatient Medications: Current Inpatient Medications Acetaminophen (Acetaminophen 325 Mg Tab) 650 mg PO Q4H PRN PRN Reason: Pain or Fever Stop: 02/17/21 00:53 Last Admin: 01/24/21 05:39 Dose: 650 mg Documented by: Acyclovir (Acyclovir 400 Mg Tab) 400 mg PO BID [facility] Stop: 02/16/21 20:59 Last Admin: 01/24/21 08:59 Dose: 400 mg Documented by: Haloperidol (Haloperidol 1 Mg Tab) 1 mg PO Q4H PRN PRN Reason: Nausea &/or Vomiting Stop: 02/17/21 00:57 Hydroxyzine HCl (Hydroxyzine Hcl 25 Mg Tab) 25 mg PO Q6 PRN PRN Reason: Anxiety Stop: 02/17/21 16:32 Last Admin: 01/23/21 21:52 Dose: 25 mg Documented by: Prochlorperazine 5 mg/ Syringe 5 mls @ 5 mls/min IV Q6H PRN PRN Reason: Nausea And Vomiting Stop: 02/18/21 20:24 Last Admin: 01/24/21 05:38 Dose: 5 mls/min Documented by: Famotidine 20 mg/ Syringe 5 mls @ 2.5 mls/min IV BID [facility] Stop: 02/22/21 20:59 Last Admin: 01/24/21 09:00 Dose: 2.5 mls/min Documented by: Metoprolol Succinate (Metoprolol Succ 25mg Ext Rel Tab) 25 mg PO BID [facility] Stop: 02/16/21 20:59 Last Admin: 01/24/21 08:54 Dose: Not Given Documented by: Mirtazapine (Mirtazapine Tab 15 Mg Tab) 15 mg PO HS DYLON Stop: 02/19/21 20:59 Last Admin: 01/23/21 21:37 Dose: 15 mg Documented by: *Dasatinib*Non-Form (Patient's Own Med) 1 ea PO DAILY DYLON Stop: 02/16/21 16:29 Last Admin: 01/23/21 16:25 Dose: 2 tab Documented by: Ondansetron HCl (Ondansetron Inj 2 Mg/Ml 2 Ml Vial) 4 mg IV Q6H PRN PRN Reason: Nausea Stop: 02/17/21 00:53 Ondansetron HCl (Ondansetron 4 Mg Od Tab) 4 mg SL Q4H PRN PRN Reason: Nausea &/or Vomiting Stop: 02/17/21 00:57 Pantoprazole Sodium (Pantoprazole 40 Mg Tab) 40 mg PO HS DYLON Stop: 02/16/21 22:34 Last Admin: 01/23/21 21:37 Dose: 40 mg Documented by: Promethazine HCl (Promethazine Hcl 25 Mg Tab) 12.5 mg PO Q6H PRN PRN Reason: Nausea &/or Vomiting Stop: 02/17/21 00:57 Last Admin: 01/19/21 16:39 Dose: 12.5 mg Documented by: Mental Health & Subst Abuse Tx Psychiatrist Name of Psychiatrist: Vanesa Banks PA-C, at [facility] Psych[facility]rist's Date of Appointment with Psychiatrist: 02/08/21 Time of Appointment with Psychiatrist: 2:40 pm Psychiatric Appointment Comment: in person
[2021-01-24] MEDS ORDERED: COUGH DROP (SUGAR FREE) LOZ 24 LOZ/1 BOX BUCCAL ONE (16:03)
[2021-01-24 18:28] LABS: Appearance Urine Clear (Clear); Bacteria Urine Automated Negative (Negative); Bilirubin Urine Negative (Negative); Blood Urine Negative (Negative); Color Urine Yellow; Epithelial Cell Urine Auto >30 /lpf (0-5); Glucose Urine UA Negative (Negative); Ketones Urine Trace (Negative); Leukocyte Esterase Urine Negative (Negative); Nitrite Urine Negative (Negative); Protein Urine 1+ (Negative); RBC Urine Automated 0-4 /hpf (0-4); Specific Gravity Urine 1.022 (1.000-1.030); Urobilinogen Urine Negative (Negative); pH Urine 5.5 (4.5-7.5)
--- NOTE | 2021-01-24 21:48 | Hospitalist Progress Note ---
Date of Service January 24, 2021 Assessment & Plan (1) Pneumonia due to COVID-19 virus: Plan: clinically and radiographically, but remains with stable O2 sats. no steroids or Remdesivir indicated at this time. if fevers persist, however - and in light of neutropenia - may need to consider IV or PO antibiotics. cbc in am. recheck procal in am. recheck crp in am. (2) COVID-19 virus infection: Plan: now with radiographic/clinical evidence of mild pneumonia she is unvaccinated, and is at risk of progressive disease given her immunocompromised state from CML defer on steroids/Remdesivir (no hypoxia) she has had fevers since 01/17 -- difficult to say if due to CML or COVID - suspect latter as all symptoms/signs point towards active COVID thus, consider today ~day #8 of her illness cont flutter valve cont incentive alexsander CPK wnl AST scantly elevated - repeat in 2 days (3) CML (chronic myelocytic leukemia): Plan: daily CBC follows with Dr Deysi Walsh low threshold for formal oncology consultation I informally discussed her care with our oncologist today in light of leukopenia and neutropenia will hold dasatinib for 1-2 days if neutropenia worsens consider neupogen if fevers cont consider empiric IV or PO abx blood cx's neg from admission (4) Rheumatoid arthritis: Plan: now on any meds for such (5) Major depression, recurrent: Plan: psych consult appreciated recs noted (6) Suicidal ideation: Plan: 1:1 observation can be discontinued per psych (7) Elevated AST (SGOT): Plan: 2nd to #1 minimally high CPK wnl (8) Pancytopenia: Plan: 2nd to #1 and #2 cbc in am neutropenic precautions (9) DVT prophylaxis: Plan: if platelets remain stable then add chemical DVT proph next 1-2 days (10) Dysuria: Plan: check u/a and urine cx -- r/o UTI Plan: support given to patient in regards to all of her stressors Admission and Anticipated Discharge Date Admission Date: January 17, 2021 Subjective pt expresses multiple concerns -severe anxiety due to multiple stressors - lack of secure housing (was living with a friend in a camper in [place] - that person has COVID and is in the [place] hospital in [place]), worried about her service dog and who will care for it, poor relationships with her family (very little contact with 2 children and her brother), lack of transportation for appointments, etc -thinks she may have UTI; was just on 7 day course of ceferoxime earlier this month (prescribed by her oncologist in [place]); gets frequent UTIs; c/o dysuria but no vaginal d/c -appetite continues to be poor Review of Systems Review of Systems: gen - cont with intermittent fever/chills; fatigue; anorexia CV - no chest pain pulm - minimal cough; no dyspnea GI - cont with diarrhea; no abd pain Physical Exam Physical Exam: gen - thin, NAD, anxious mouth - MM and lips dry but not as severe as yesterday neck - no JVD heart - RRR, s1 s2, no murmur lungs - bibasilar fine rales remain, no distress abd - soft NT ND BS+; spleen tip palpable; liver edge palpable ext - no edema, pulses 2+ b/l psych - anxious, a/o x 3 Results & Data Results & Data ([facility]) Vital Signs (Past 12 Hours) Vital Signs Temp Pulse Resp BP Pulse Ox 01/24/21 17:08 37.7 C H 96 H 18 131/75 96 Laboratory Results Laboratory Results - last 24 hr 01/24/21 01/24/21 01/24/21 07:24 07:24 18:11 WBC 1.58 L RBC 3.39 L Hgb 10.5 L Hct 31.2 L MCV 92.0 MCH 31.0 MCHC 33.7 RDW Std Deviation 55.2 H RDW Coeff of Elpidio 16.4 H Plt Count 74 L MPV 10.4 Immature Gran % (Auto) 0.0 Neut % (Auto) 60.7 Lymph % (Auto) 30.4 [place] % (Auto) 8.9 Eos % (Auto) 0.0 Baso % (Auto) 0.0 Neut # (Auto) 0.96 L* Lymph # (Auto) 0.48 L [place] # (Auto) 0.14 Eos # (Auto) 0.00 Baso # (Auto) 0.00 Immature Gran # (Auto) 0.00 Platelet Estimate Decreased L Sodium 140 Potassium 3.7 Chloride 110 H Carbon Dioxide 21 Anion Gap 9.0 BUN 13 Creatinine 0.73 Est Cr Clr Drug Dosing 61.9 Est GFR ( Amer) 106.0 Est GFR (Non-Af Amer) 91.4 BUN/Creatinine Ratio 18.3 Glucose 97 Calcium 8.3 L AST 39 H Total Creatine Kinase 50 Urine Color Yellow Urine Appearance Clear Urine pH 5.5 Ur Specific Abbott 1.022 Urine Protein 1+ H Urine Glucose (UA) Negative Urine Ketones Trace H Urine Blood Negative Urine Nitrite Negative Urine Bilirubin Negative Urine Urobilinogen Negative Ur Leukocyte Esterase Negative Urine WBC (Auto) 1-5 Urine RBC (Auto) 0-4 U Hyaline Cast (Auto) 1-5 U Epithel Cells (Auto) >30 H Urine Bacteria (Auto) Negative PG Care Time/CCT Total # of Minutes Spent Total Time Spent with Patient: Total time spent is greater than 50% in coordination of care (as documented) at patient's floor/unit and/or counseling patient: Coding Level of Care Code 30418 Subseq Hosp Care Lvl 3 Diagnoses COVID-19 virus infection U07.1 CML (chronic myelocytic leukemia) C92.10 Rheumatoid arthritis M06.9 Major depression, recurrent F33.9 Suicidal ideation R45.851 Elevated AST (SGOT) R74.01 Pancytopenia D61.818 DVT prophylaxis Z29.9 Pneumonia due to COVID-19 virus U07.1; J12.82 Dysuria R30.0
[2021-01-24] MEDS: MIRTAZAPINE TAB 15 MG TAB PO SCH (22:01)
[2021-01-24] MEDS: hydrOXYzine HCl 25 MG TAB PO PRN (22:01)
[2021-01-24] MEDS: PANTOprazole 40 MG TAB PO SCH (22:42)
[2021-01-25 07:25] LABS: Hematocrit (blood only) 32.1 % (37-47); Hemoglobin 10.7 g/dL (12.0-16.0); Mean Corpuscular Hemoglobin 30.8 pg (25-34); Mean Corpuscular Hgb Conc 33.3 g/dL (32-36); Mean Corpuscular Volume 92.5 fL (80-100); Mean Platelet Volume 11.4 fL (7.4-10.4); Platelet Count 100 K/uL (130-400); RDW Coefficient of Variation 16.4 % (11.5-14.5); RDW Standard Deviation 55.4 fL (36.4-46.3); Red Blood Count 3.47 M/uL (4.2-5.4); White Blood Count 1.51 K/uL (4.8-10.8)
[2021-01-25 07:48] LABS: Basophils # (auto) 0.01 K/uL (0-0.2); Basophils % (auto) 0.7 %; Lymphocytes # (auto) 0.67 K/uL (1.2-3.4); Lymphocytes % (auto) 44.4 %; Monocytes # (auto) 0.23 K/uL (0.11-0.59); Monocytes % (auto) 15.2 %; Neutrophils % (auto) 39.7 %
[2021-01-25 08:06] LABS: BUN Creatinine Ratio 15.2 (10-20); Calcium 9.2 mg/dl (8.5-10.1); Creatinine Clr Calc Pharmacy 56.5 ml/min; Est GFR (African American) 94.9 ml/min; Est GFR (Non-African American) 81.8 ml/min; Potassium 4.3 mmol/L (3.5-5.1)
[2021-01-25] MEDS: METOPROLOL SUCC 25MG EXT REL TAB PO SCH ×2 (09:23→21:24)
[2021-01-25] MEDS: ACYCLOVIR 400 MG TAB PO SCH ×2 (09:36→21:24)
[2021-01-25] MEDS: FAMOTIDINE 20 MG in SYRINGE 3 ML IV SCH ×2 (09:36→21:25)
[2021-01-25] MEDS: HEPARIN SOD 5,000 UNIT/0.5 ML VIAL SQ SCH ×2 (09:37→21:33)
[2021-01-25] MEDS: levoFLOXacin 500 MG TAB PO SCH (09:37)
--- NOTE | 2021-01-25 13:23 | Psychiatric Progress Note ---
Date of Service January 25, 2021 Impression / Recommendations Impression 55 yo female with CML, sent to ED for SI with plan, reported fever and found COVID+. Diagnostically consistent with MDD with anxious features. See daily stay summary. In short, patient was engaged with daily calls with psychiatry/social work and therapeutic staff from [facility], safety was maintained and the patient was cooperative with care. Medication changes included initiation of mirtazapine 15mg qhs and atarax 25mg TID prn for anxiety and they tolerated this well. If depressive symptoms worsen in the future her mirtazapine could be increased. A safety plan was completed and follow-up psychiatric care scheduled. (1) Suicidal ideation: (2) Major depression, recurrent: (3) SARS-CoV-2 positive: (4) CML (chronic myelocytic leukemia): 01/25/21: safe for discharge from psychiatric [facility]/COVID+ telemedicine service. She does not require further inpatient psychiatric care and is safe to discharge to home once she is medically stable. Safety plan was completed and reviewed. She can have her personal items back. She has follow-up scheduled with [facility]. She should continue mirtazapine and vistaril prn. 01/24/21: continue medications. At discharge will need: mirtazapine 15mg qHS (30 days, 0 refills), vistaril 25mg TID prn (90 tabs, 0 refills). Can discontinue 1:1 as she has had multiple days without SI. Safety plan will be completed tonight. 01/23/21: continue medications. Discussed having atarax at discharge as TID prn as she finds this helpful. She will work on safety plan. She was given contact information for [facility] ([phone]). Continue 1:1 observation. 01/22/21: continue current medications. Continue 1:1. Investigating housing options. 01/21/21: reviewed interim progress. Continue with Mirtazapine 15 mg qhs and atarax 25 mg q6h prn. Continue 1:1 observation, safe to shower from a psychiatric standpoint. Looking into housing options. 01/20/21: titrate Remeron and Vistaril (reports 10 mg minimally effective). [facility] info per liaison. Continue 1-on-1 but appropriate to shower if able. 01/19/21: session took place with social worker assistant and liaison to decrease splitting. Continue medications unchanged. 01/18/21: verify if had thyroid panel as typical psych clearance continue 1-on-1, should not be allowed to leave hospital AMA given potential lethality of plan and no coordinated safety plan at this time re: Tom, d/c in favor of trial of hydroxyzine 10 mg q6 prn. Lower dose given size and QTc risk with antiemetics. Risks/benefits/alternatives reviewed re: antidepressants for the treatment of depression and/or anxiety. The patient agreed to a trial of Remeron 7.5 mg starting this hs. Risk Factors Assessment Do You Have Access To A Gun?: No Mental Health Diagnoses: Yes Hopelessness: No Protective Factors Assessment Stable Relationships: Yes Supportive Family: Yes Good Rapport with Provider: Yes Interval History Identifying Information 55 yo female with CML admit 01/17/21 for fever, COVID+, suicidal ideation with plan. Chief Complaint "I'm absolutely ready to go home once they finish treating my COVID". Review of Systems Notes Reports good sleep and stable appetite. Telehealth Telehealth Options: Telephone only For the duration of the visit, provider was performing the assessment from: The same facility as the patient Subjective Subjective Patient was seen & assessed and interval progress reviewed with treatment team nursing and social work. Today Maricruz reports feeling "absolutely" ready for discharge from our psychiatric service but understands she'll remain hospitalized while the medical team continues to treat her COVID. She continues to find the mirtazapine and atarax helpful without any side effects. She continues to deny any SI. She is future-oriented and completed her safety plan. She understands her psych follow-up is scheduled with [facility]. Denies any other questions or concerns. Physical Exam Psychiatric Today the patient voices readiness for discharge from the psychiatric COVID+/[facility] telemedicine service. They note improvement in mood and anxiety. They deny thoughts of harm to self or others. Thoughts remain organized and they are clinically improved from admission. There is no evidence of psychosis. They improved in the hospital with support and medication adjustments. They agree to take medications as prescribed and keep follow-up appointments. At the time of discharge from our service they are deemed to be stable and appropriate for outpatient level of care once medically discharged following completion of treatment for COVID. They are not deemed to be at imminent risk of harm to self or others. They are aware of emergency and crisis services. Knows to call 911 or go to nearest emergency care center if in a crisis which cannot be handled as an outpatient. Vital Signs (Past 24 Hours) Last Vital Signs Temp 36.7 C 01/25/21 08:10 Pulse 78 01/25/21 08:10 Resp 18 01/25/21 08:10 BP 116/65 01/25/21 08:10 Pulse Ox 98 01/25/21 08:10 Results & Data ([facility]) Laboratory Results Laboratory Results - last 24 hr 01/24/21 01/25/21 01/25/21 18:11 07:18 07:18 WBC 1.51 L RBC 3.47 L Hgb 10.7 L Hct 32.1 L MCV 92.5 MCH 30.8 MCHC 33.3 RDW Std Deviation 55.4 H RDW Coeff of Elpidio 16.4 H Plt Count 100 L MPV 11.4 H Immature Gran % (Auto) 0.0 Neut % (Auto) 39.7 Lymph % (Auto) 44.4 [place] % (Auto) 15.2 Eos % (Auto) 0.0 Baso % (Auto) 0.7 Neut # (Auto) 0.60 L* Lymph # (Auto) 0.67 L [place] # (Auto) 0.23 Eos # (Auto) 0.00 Baso # (Auto) 0.01 Immature Gran # (Auto) 0.00 Sodium 141 Potassium 4.3 D Chloride 110 H Carbon Dioxide 26 Anion Gap 5.0 BUN 12 Creatinine 0.80 Est Cr Clr Drug Dosing 56.5 Est GFR ( Amer) 94.9 Est GFR (Non-Af Amer) 81.8 BUN/Creatinine Ratio 15.2 Glucose 86 Calcium 9.2 C-Reactive Protein Procalcitonin Urine Color Yellow Urine Appearance Clear Urine pH 5.5 Ur Specific [place] 1.022 Urine Protein 1+ H Urine Glucose (UA) Negative Urine Ketones Trace H Urine Blood Negative Urine Nitrite Negative Urine Bilirubin Negative Urine Urobilinogen Negative Ur Leukocyte Esterase Negative Urine WBC (Auto) 1-5 Urine RBC (Auto) 0-4 U Hyaline Cast (Auto) 1-5 U Epithel Cells (Auto) >30 H Urine Bacteria (Auto) Negative 01/25/21 01/25/21 07:18 07:18 WBC RBC Hgb Hct MCV MCH MCHC RDW Std Deviation RDW Coeff of Elpidio Plt Count MPV Immature Gran % (Auto) Neut % (Auto) Lymph % (Auto) [place] % (Auto) Eos % (Auto) Baso % (Auto) Neut # (Auto) Lymph # (Auto) [place] # (Auto) Eos # (Auto) Baso # (Auto) Immature Gran # (Auto) Sodium Potassium Chloride Carbon Dioxide Anion Gap BUN Creatinine Est Cr Clr Drug Dosing Est GFR ( Amer) Est GFR (Non-Af Amer) BUN/Creatinine Ratio Glucose Calcium C-Reactive Protein 1.69 H Procalcitonin 0.05 Urine Color Urine Appearance Urine pH Ur Specific Spencer Urine Protein Urine Glucose (UA) Urine Ketones Urine Blood Urine Nitrite Urine Bilirubin Urine Urobilinogen Ur Leukocyte Esterase Urine WBC (Auto) Urine RBC (Auto) U Hyaline Cast (Auto) U Epithel Cells (Auto) Urine Bacteria (Auto) Current Inpatient Medications Current Inpatient Medications: Current Inpatient Medications Acetaminophen (Acetaminophen 325 Mg Tab) 650 mg PO Q4H PRN PRN Reason: Pain or Fever Stop: 02/17/21 00:53 Last Admin: 01/24/21 22:40 Dose: 650 mg Documented by: Acyclovir (Acyclovir 400 Mg Tab) 400 mg PO BID [facility] Stop: 02/16/21 20:59 Last Admin: 01/25/21 09:36 Dose: 400 mg Documented by: Haloperidol (Haloperidol 1 Mg Tab) 1 mg PO Q4H PRN PRN Reason: Nausea &/or Vomiting Stop: 02/17/21 00:57 Heparin Sodium (Porcine) (Heparin Sod 5,000 Unit/0.5 Ml Vial) 5,000 units SQ Q12 [facility] Stop: 02/24/21 08:59 Last Admin: 01/25/21 09:37 Dose: 5,000 units Documented by: Hydroxyzine HCl (Hydroxyzine Hcl 25 Mg Tab) 25 mg PO Q6 PRN PRN Reason: Anxiety Stop: 02/17/21 16:32 Last Admin: 01/24/21 22:01 Dose: 25 mg Documented by: Prochlorperazine 5 mg/ Syringe 5 mls @ 5 mls/min IV Q6H PRN PRN Reason: Nausea And Vomiting Stop: 02/18/21 20:24 Last Admin: 01/24/21 21:58 Dose: 5 mls/min Documented by: Famotidine 20 mg/ Syringe 5 mls @ 2.5 mls/min IV BID [facility] Stop: 02/22/21 20:59 Last Admin: 01/25/21 09:36 Dose: 2.5 mls/min Documented by: Levofloxacin (Levofloxacin 500 Mg Tab) 500 mg PO DAILY@1100 [facility] Stop: 02/01/21 10:59 Last Admin: 01/25/21 09:37 Dose: 500 mg Documented by: Metoprolol Succinate (Metoprolol Succ 25mg Ext Rel Tab) 25 mg PO BID [facility] Stop: 02/16/21 20:59 Last Admin: 01/25/21 09:23 Dose: 25 mg Documented by: Mirtazapine (Mirtazapine Tab 15 Mg Tab) 15 mg PO HS [facility] Stop: 02/19/21 20:59 Last Admin: 01/24/21 22:01 Dose: 15 mg Documented by: *Dasatinib*Non-Form (Patient's Own Med) 1 ea PO DAILY [facility] Stop: 02/16/21 16:29 Last Admin: 01/23/21 16:25 Dose: 2 tab Documented by: Ondansetron HCl (Ondansetron Inj 2 Mg/Ml 2 Ml Vial) 4 mg IV Q6H PRN PRN Reason: Nausea Stop: 02/17/21 00:53 Ondansetron HCl (Ondansetron 4 Mg Od Tab) 4 mg SL Q4H PRN PRN Reason: Nausea &/or Vomiting Stop: 02/17/21 00:57 Pantoprazole Sodium (Pantoprazole 40 Mg Tab) 40 mg PO [facility] Stop: 02/16/21 22:34 Last Admin: 01/24/21 22:42 Dose: 40 mg Documented by: Promethazine HCl (Promethazine Hcl 25 Mg Tab) 12.5 mg PO Q6H PRN PRN Reason: Nausea &/or Vomiting Stop: 02/17/21 00:57 Last Admin: 01/19/21 16:39 Dose: 12.5 mg Documented by: Mental Health & Subst Abuse Tx Psychiatrist Name of Psychiatrist: Vanesa Banks PA-C, at [facility] Psychiatrist's Date of Appointment with Psychiatrist: 02/08/21 Time of Appointment with Psychiatrist: 2:40 pm Psychiatric Appointment Comment: in person
[2021-01-25] MEDS: hydrOXYzine HCl 25 MG TAB PO PRN ×2 (17:12→22:41)
--- NOTE | 2021-01-25 20:28 | Hospitalist Progress Note ---
Date of Service January 25, 2021 Assessment & Plan (1) Pneumonia due to COVID-19 virus: Plan: clinically and radiographically, but again remains stable with scant symptoms and normal O2 sats. no steroids or Remdesivir indicated at this time. due to ongoing fevers & neutropenia will add levaquin to cover for bacterial coverage of lungs. procal neg crp minimally elevated. (2) COVID-19 virus infection: Plan: has radiographic/clinical evidence of mild pneumonia she is unvaccinated, and is at risk of progressive disease given her immunocompromised state from CML fortunately that has not happened to date and O2 sats remain stable defer on steroids/Remdesivir (no hypoxia) she is about ~day #9 of her illness cont flutter valve cont incentive alexsander CPK wnl AST scantly elevated (3) CML (chronic myelocytic leukemia): Plan: daily CBC follows with Jillian, Dr oJ placed call to Dr Jo today - left message with my cell # will give him update once we connect low threshold for formal oncology consultation if any worsening of CBC, etc I informally discussed her care with our oncologist yesterday in light of leukopenia and neutropenia will hold dasatinib another day if neutropenia worsens consider neupogen blood cx's neg from admission (4) Rheumatoid arthritis: Plan: now on any meds for such (5) Major depression, recurrent: Plan: psych consult appreciated recs noted 1:1 can be d/c (6) Suicidal ideation: Plan: 1:1 observation can be discontinued per psych (7) Elevated AST (SGOT): Plan: 2nd to #1 minimally high CPK wnl (8) Pancytopenia: Plan: 2nd to #1 and #2 cbc in am neutropenic precautions (9) DVT prophylaxis: Plan: heparin 5000 BID; platelets stable today (10) Dysuria: Plan: urine cx thus far neg pt denies vaginitis symptoms Plan: angular cheilitis - magic mouthwash qid swish/spit; nystatin ointment to corners of mouth TID progressing Admission and Anticipated Discharge Date Admission Date: January 17, 2021 Subjective pt feeling better today appetite is improved did have fever overnight but none today no chills feels gassy and crampy - tends to have this chronically but no worse than baseline no cough or dyspnea Review of Systems Review of Systems: gen - fatigue, appetite all improved pulm - no dyspnea or SANCHEZ CV - no cp GI - no abd pain despite gassiness - mild dysuria -- still denies vaginal discharge Physical Exam Physical Exam: gen - thin, NAD, looks good today mouth - MM and lips dry; angular cheilitis neck - no JVD heart - RRR, s1 s2, no murmur lungs - bibasilar fine rales remain, no distress; rales a bit worse today abd - soft NT ND BS+; spleen tip palpable; liver edge palpable ext - no edema, pulses 2+ b/l psych - less anxious today, a/o x 3 Results & Data Results & Data ([facility]) Vital Signs (Past 12 Hours) Vital Signs Temp Pulse Resp BP Pulse Ox 01/25/21 19:45 37.1 C 84 18 129/76 98 Laboratory Results Laboratory Results - last 24 hr 01/25/21 01/25/21 01/25/21 07:18 07:18 07:18 WBC 1.51 L RBC 3.47 L Hgb 10.7 L Hct 32.1 L MCV 92.5 MCH 30.8 MCHC 33.3 RDW Std Deviation 55.4 H RDW Coeff of Elpidio 16.4 H Plt Count 100 L MPV 11.4 H Immature Gran % (Auto) 0.0 Neut % (Auto) 39.7 Lymph % (Auto) 44.4 [place] % (Auto) 15.2 Eos % (Auto) 0.0 Baso % (Auto) 0.7 Neut # (Auto) 0.60 L* Lymph # (Auto) 0.67 L [place] # (Auto) 0.23 Eos # (Auto) 0.00 Baso # (Auto) 0.01 Immature Gran # (Auto) 0.00 Sodium 141 Potassium 4.3 D Chloride 110 H Carbon Dioxide 26 Anion Gap 5.0 BUN 12 Creatinine 0.80 Est Cr Clr Drug Dosing 56.5 Est GFR ( Amer) 94.9 Est GFR (Non-Af Amer) 81.8 BUN/Creatinine Ratio 15.2 Glucose 86 Calcium 9.2 C-Reactive Protein 1.69 H Procalcitonin 01/25/21 07:18 WBC RBC Hgb Hct MCV MCH MCHC RDW Std Deviation RDW Coeff of Elpidio Plt Count MPV Immature Gran % (Auto) Neut % (Auto) Lymph % (Auto) [place] % (Auto) Eos % (Auto) Baso % (Auto) Neut # (Auto) Lymph # (Auto) [place] # (Auto) Eos # (Auto) Baso # (Auto) Immature Gran # (Auto) Sodium Potassium Chloride Carbon Dioxide Anion Gap BUN Creatinine Est Cr Clr Drug Dosing Est GFR ( Amer) Est GFR (Non-Af Amer) BUN/Creatinine Ratio Glucose Calcium C-Reactive Protein Procalcitonin 0.05 Diagnostic Findings urine cx negative PG Care Time/CCT Total # of Minutes Spent Total Time Spent with Patient: Total time spent is greater than 50% in coordination of care (as documented) at patient's floor/unit and/or counseling patient: Coding Level of Care Code 37693 Subseq Hosp Care Lvl 2 Diagnoses Pneumonia due to COVID-19 virus U07.1; J12.82 COVID-19 virus infection U07.1 CML (chronic myelocytic leukemia) C92.10 Rheumatoid arthritis M06.9 Major depression, recurrent F33.9 Suicidal ideation R45.851 Elevated AST (SGOT) R74.01 Pancytopenia D61.818 DVT prophylaxis Z29.9 Dysuria R30.0
[2021-01-25] MEDS: MIRTAZAPINE TAB 15 MG TAB PO SCH (21:24)
[2021-01-25] MEDS: PANTOprazole 40 MG TAB PO SCH (21:25)
[2021-01-25] MEDS: NYSTATIN OINT 15 GM TUBE EXT SCH (21:33)
[2021-01-26 08:03] LABS: Hematocrit (blood only) 30.9 % (37-47); Hemoglobin 10.5 g/dL (12.0-16.0); Mean Corpuscular Hemoglobin 31.2 pg (25-34); Mean Corpuscular Volume 91.7 fL (80-100); Mean Platelet Volume 10.7 fL (7.4-10.4); Platelet Count 126 K/uL (130-400); RDW Coefficient of Variation 16.1 % (11.5-14.5); RDW Standard Deviation 54.2 fL (36.4-46.3); Red Blood Count 3.37 M/uL (4.2-5.4); White Blood Count 1.52 K/uL (4.8-10.8)
[2021-01-26 08:15] LABS: Creatinine Clr Calc Pharmacy 77.9 ml/min; Est GFR (African American) 118.6 ml/min; Est GFR (Non-African American) 102.3 ml/min
[2021-01-26 08:28] LABS: Basophils # (auto) 0.01 K/uL (0-0.2); Basophils % (auto) 0.7 %; Eosinophils # (auto) 0.01 K/uL (0-0.5); Eosinophils % (auto) 0.7 %; Lymphocytes # (auto) 0.42 K/uL (1.2-3.4); Lymphocytes % (auto) 27.6 %; Monocytes # (auto) 0.18 K/uL (0.11-0.59); Monocytes % (auto) 11.8 %; Neutrophils % (auto) 59.2 %
[2021-01-26] MEDS: ACYCLOVIR 400 MG TAB PO SCH ×2 (09:51→20:01)
[2021-01-26] MEDS: METOPROLOL SUCC 25MG EXT REL TAB PO SCH ×2 (09:51→20:01)
[2021-01-26] MEDS: HEPARIN SOD 5,000 UNIT/0.5 ML VIAL SQ SCH ×2 (09:51→20:00)
[2021-01-26] MEDS: NYSTATIN OINT 15 GM TUBE EXT SCH ×3 (09:51→20:03)
[2021-01-26] MEDS: FAMOTIDINE 20 MG in SYRINGE 3 ML IV SCH ×2 (09:52→20:01)
[2021-01-26] MEDS: levoFLOXacin 500 MG TAB PO SCH (11:21)
--- NOTE | 2021-01-26 19:43 | Hospitalist Progress Note ---
Date of Service January 26, 2021 Assessment & Plan (1) Pneumonia due to COVID-19 virus: Plan: clinically and radiographically, but again remains stable with scant to no symptoms and normal O2 sats. no steroids or Remdesivir indicated at this time. due to ongoing fevers & neutropenia added levaquin to cover for bacterial coverage of lungs - day #2 of such. procal neg crp minimally elevated. (2) COVID-19 virus infection: Plan: has radiographic/clinical evidence of mild pneumonia she is unvaccinated, and is at risk of progressive disease given her immunocompromised state from CML fortunately that has not happened to date and O2 sats remain stable defer on steroids/Remdesivir (no hypoxia) she is about ~day #10 of her illness cont flutter valve cont incentive alexsander CPK wnl AST scantly elevated (3) CML (chronic myelocytic leukemia): Plan: daily CBC follows with Dr Deysi Walsh placed call to Dr Jo today - see HPI recheck CBC in am and if ANC is stable then resume her dasatinib low threshold for formal oncology consultation if any worsening of CBC, etc (4) Rheumatoid arthritis: Plan: now on any meds for such (5) Major depression, recurrent: Plan: psych consult appreciated recs noted 1:1 d/c (6) Suicidal ideation: Plan: 1:1 observation discontinued (7) Elevated AST (SGOT): Plan: 2nd to #1 minimally high CPK wnl (8) Pancytopenia: Plan: 2nd to #1 and #2 cbc in am neutropenic precautions (9) DVT prophylaxis: Plan: heparin 5000 BID; platelets again stable today (10) UTI (urinary tract infection): Plan: gamma strep on urine cx levaquin will cover this Plan: angular cheilitis - magic mouthwash qid swish/spit; nystatin ointment to corners of mouth TID bloating/gassiness - try bentyl BID d/c next 1-2 days if social issues can be surmounted Admission and Anticipated Discharge Date Admission Date: January 17, 2021 Subjective pt very anxious today she keeps "losing her train of thought" and feels like "her brain isn't working" anxious about her disposition (was living in a camper in [place]), how she will get to doctor appointments, worried about her sick boyfriend, etc I did [place] [facility] oncologist if ANC is similar or better tomorrow he advised resuming her dasatinib he reported she will need weekly cbc's post-dc he also mentioned she would need 2 neg COVID tests until she could go for a live visit at the [facility] no other physical changes overnight does report feeling "gassy" Review of Systems Review of Systems: gen - no fevers or chills; eating a little better pulm - no cough or dyspnea CV - no chest pain or orthopnea GI - no vomiting or diarrhea but "gassy"/bloated Physical Exam Physical Exam: gen - thin, NAD, anxious mouth - MM and lips dry; angular cheilitis unchanged; thrush improved neck - no JVD heart - RRR, s1 s2, no murmur lungs - bibasilar fine rales remain, no distress; rales are unchanged abd - soft NT ND BS+; spleen tip palpable; liver edge palpable ext - no edema, pulses 2+ b/l psych - anxious today, a/o x 3 skin - no rash Results & Data Results & Data ([facility]) Vital Signs (Past 12 Hours) Vital Signs Temp Pulse Resp BP Pulse Ox 01/26/21 17:08 37.0 C 80 18 120/72 96 Laboratory Results Laboratory Results - last 24 hr 01/26/21 01/26/21 07:23 07:23 WBC 1.52 L RBC 3.37 L Hgb 10.5 L Hct 30.9 L MCV 91.7 MCH 31.2 MCHC 34.0 RDW Std Deviation 54.2 H RDW Coeff of Elpidio 16.1 H Plt Count 126 L MPV 10.7 H Immature Gran % (Auto) 0.0 Neut % (Auto) 59.2 Lymph % (Auto) 27.6 [place] % (Auto) 11.8 Eos % (Auto) 0.7 Baso % (Auto) 0.7 Neut # (Auto) 0.90 L* Lymph # (Auto) 0.42 L [place] # (Auto) 0.18 Eos # (Auto) 0.01 Baso # (Auto) 0.01 Immature Gran # (Auto) 0.00 Creatinine 0.58 L Est Cr Clr Drug Dosing 77.9 Est GFR ( Amer) 118.6 Est GFR (Non-Af Amer) 102.3 PG Care Time/CCT Total # of Minutes Spent Total Time Spent with Patient: Total time spent is greater than 50% in coordination of care (as documented) at patient's floor/unit and/or counseling patient: Coding Level of Care Code 70485 Subseq Hosp Care Lvl 3 Diagnoses Pneumonia due to COVID-19 virus U07.1; J12.82 COVID-19 virus infection U07.1 CML (chronic myelocytic leukemia) C92.10 Rheumatoid arthritis M06.9 Major depression, recurrent F33.9 Suicidal ideation R45.851 Elevated AST (SGOT) R74.01 Pancytopenia D61.818 DVT prophylaxis Z29.9 UTI (urinary tract infection) N39.0
[2021-01-26] MEDS: PANTOprazole 40 MG TAB PO SCH (20:01)
[2021-01-26] MEDS: MIRTAZAPINE TAB 15 MG TAB PO SCH (22:37)
[2021-01-26] MEDS: hydrOXYzine HCl 25 MG TAB PO PRN (22:37)
[2021-01-26] MEDS: DICYCLOMINE HCL 10 MG CAP PO SCH (22:37)
--- NOTE | 2021-01-27 07:23 | Ultrasound Report ---
RIGHT LOWER EXTREMITY VENOUS DOPPLER HISTORY: COVID+, Right leg is large/warm, eval DVT COMPARISON STUDY: None. FINDINGS: There is normal compressibility, flow, and augmentation within the right lower extremity de ep venous system. IMPRESSION: No DVT within the right lower extremity ACT 112: Negative or not required by law. Electronically signed by: Michael Umanzor M.D. 01/27/2021 7:22 AM
[2021-01-27 08:11] LABS: Hematocrit (blood only) 30.4 % (37-47); Hemoglobin 10.3 g/dL (12.0-16.0); Mean Corpuscular Hemoglobin 30.8 pg (25-34); Mean Corpuscular Hgb Conc 33.9 g/dL (32-36); Mean Platelet Volume 10.1 fL (7.4-10.4); Platelet Count 160 K/uL (130-400); RDW Coefficient of Variation 15.7 % (11.5-14.5); RDW Standard Deviation 52.4 fL (36.4-46.3); Red Blood Count 3.34 M/uL (4.2-5.4); White Blood Count 1.43 K/uL (4.8-10.8)
[2021-01-27 08:28] LABS: Eosinophils # (auto) 0.01 K/uL (0-0.5); Eosinophils % (auto) 0.7 %; Lymphocytes # (auto) 0.59 K/uL (1.2-3.4); Lymphocytes % (auto) 41.3 %; Monocytes # (auto) 0.15 K/uL (0.11-0.59); Monocytes % (auto) 10.5 %; Neutrophils # (auto) 0.68 K/uL (1.4-6.5); Neutrophils % (auto) 47.5 %
[2021-01-27] MEDS: DICYCLOMINE HCL 10 MG CAP PO SCH (08:33)
[2021-01-27] MEDS: METOPROLOL SUCC 25MG EXT REL TAB PO SCH (08:33)
[2021-01-27] MEDS: ACYCLOVIR 400 MG TAB PO SCH (08:33)
[2021-01-27] MEDS: FAMOTIDINE 20 MG in SYRINGE 3 ML IV SCH (08:35)
[2021-01-27] MEDS: HEPARIN SOD 5,000 UNIT/0.5 ML VIAL SQ SCH (08:35)
[2021-01-27] MEDS: NYSTATIN OINT 15 GM TUBE EXT SCH ×2 (08:36→13:30)
[2021-01-27 08:40] LABS: BUN Creatinine Ratio 13.2 (10-20); Creatinine Clr Calc Pharmacy 71.7 ml/min; Est GFR (African American) 115.4 ml/min; Est GFR (Non-African American) 99.6 ml/min; Potassium 3.8 mmol/L (3.5-5.1)
[2021-01-27] MEDS ORDERED: FILGRASTIM 300 MCG/ML VIAL SC ONE (11:00)
[2021-01-27] MEDS: levoFLOXacin 500 MG TAB PO SCH (11:34)
[2021-01-27] MEDS: hydrOXYzine HCl 25 MG TAB PO PRN (13:30)
--- NOTE | 2021-01-27 14:55 | Discharge Summary ---
Date of Service date of admission - January 17, 2021 date of discharge - January 27, 2021 Admission HPI Per Admitting Provider Linda Crawford is a 55 year old female referred to the ER by [facility] due to severe anxiety and suicidal ideation. Workup in the ER revealed her to be SARS-COV-2 positive therefore she was referred to medicine for admission and ongoing management on a medical alvarado as unable to admit to psychiatry at this time. She denies any COVID-19 symptoms other than fevers/chills which she reports she has been having constantly night and day for "a long time" due to her CML. She was reportedly diagnosed with CML on September 11 and takes dasatinib for this. She reports being tested for antibodies last year and she was positive - thinks she had it around Jan 2019 as she had a severe respiratory illness at that time. She is not vaccinated due to severe vaccine reaction in the past. Regarding her suicidal ideation she reports wanting to walk on the highway and get hit by a truck. Her anxiety has been getting worse for months. She has tried multiple SSRIs before without any benefit. Currently she takes Klonopin prescribed by her pastoral counselor but reports this is no longer effective and she is only getting one hour of sleep a night. Principal Diagnosis 1. Major depression, anxiety disorder, suicidal ideation 2. COVID-19 illness with largely asymptomatic b/l pneumonia 3. CML Discharge Exam gen - thin, NAD, anxious mouth - MM and lips dry; angular cheilitis unchanged; thrush improved neck - no JVD heart - RRR, s1 s2, no murmur lungs - mild bibasilar fine rales, no distress abd - soft NT ND BS+; spleen tip palpable; liver edge palpable ext - no edema, pulses 2+ b/l psych - anxious today, a/o x 3 skin - no rash Discharge Data Allergies Allergy/AdvReac Type Severity Reaction Status Date / Time carbamazepine [From Tegretol] Allergy Severe Anaphylaxis Verified 01/25/21 08:37 codeine Allergy Severe Anaphylaxis Verified 01/25/21 08:37 Iodinated Contrast Media Allergy Severe Anaphylaxis Verified 01/25/21 08:37 meperidine [From Demerol] Allergy Severe Anaphylaxis Verified 01/25/21 08:37 morphine Allergy Severe Anaphylaxis Verified 01/25/21 08:37 Penicillins Allergy Severe Anaphylaxis Verified 01/25/21 08:37 phenobarbital Allergy Severe Anaphylaxis Verified 01/25/21 08:37 Sulfa (Sulfonamide Allergy Severe Anaphylaxis Verified 01/25/21 08:37 Antibiotics) thiopental [From Pentothal] Allergy Severe Anaphylaxis Verified 01/25/21 08:37 Consultations Psychiatry [facility] Liaison Ordered Studies Chest X-Ray 01/17/21 11:41 XR chest 1V portable CLINICAL HISTORY: SEPSIS TECHNIQUE: Single frontal radiograph of the chest was obtained. Comparison: None available at the time of this dictation. FINDINGS: No lines and tubes are seen. The cardiomediastinal silhouette is normal. The lungs are clear. No evidence of pleural effusion or pneumothorax. IMPRESSION: No acute chest disease. ACT 112: Negative or not required by law. Electronically signed by: Jeff Langford M.D. 01/17/2021 11:57 AM Chest X-Ray 01/24/21 07:00 SINGLE VIEW CHEST CLINICAL HISTORY: Covid. Rales on physical examination. FINDINGS: An AP, portable, upright chest radiograph is compared to study dated 01/17/2021. The cardiomediastinal silhouette is unremarkable. There are faint airspace opacities at both lung bases. No large pleural effusion or pneumothorax is seen. The bony thorax is grossly intact. IMPRESSION: Faint bibasilar airspace opacities likely represent a mild infectious/inflammatory pneumonitis. Radiographic follow-up to resolution is recommended. ACT 112: Negative or not required by law. Electronically signed by: Abiodun Ugarte M.D. 01/24/2021 10:22 AM Venous Doppler Study 01/26/21 20:54 RIGHT LOWER EXTREMITY VENOUS DOPPLER HISTORY: COVID+, Right leg is large/warm, eval DVT COMPARISON STUDY: None. FINDINGS: There is normal compressibility, flow, and augmentation within the right lower extremity deep venous system. IMPRESSION: No DVT within the right lower extremity ACT 112: Negative or not required by law. Electronically signed by: Michael Umanzor M.D. 01/27/2021 7:22 AM Hospital Course (1) Pneumonia due to COVID-19 virus: clinically and radiographically, but remained stable with scant to no symptoms and normal O2 sats throughout her stay. no steroids or Remdesivir indicated while hospitalized. due to persistent fevers & neutropenia added levaquin to cover for bacterial coverage of lungs. will complete a full 7-day course of levaquin. (2) COVID-19 virus infection: had radiographic/clinical evidence of mild pneumonia. O2 sats remained stable while hospitalized, and she had minimal symptoms. she had evidence of bone marrow suppression from her COVID illness with leukopenia, neutropenia, and thrombocytopenia. platelets normalized prior to discharge. she was febrile for the first several days of her stay but ultimately resolved such. she was afebrile for nearly 3 days prior to discharge. (3) CML (chronic myelocytic leukemia): follows with [facility], Dr Francisco Clancy. has been taking dasatinib daily since the summer/fall of 2020. her dasatinib was held for 2 days due to leukopenia and neutropenia during her illness. on day of discharge her ANC was 680 and total WBC count was 1.4. Dr Clancy was contacted via phone on day of discharge, and he advised a one- time dose of neupogen, followed by resumption of her dasatinib. She will need a repeat CBC within 4-5 days of hospital discharge for stability, followed by weekly CBCs thereafter. If lack of transportation precludes her from seeing Dr Clancy in [place] she will then need to establish care [facility] in [place]. (4) Rheumatoid arthritis: now on any meds for such (5) Major depression, recurrent: seen by psychiatry during the stay. she was on 1:1 observation for the majority of her admission. she was initiated on remeron 15mg at HS along with hydroxyzine prn. she did not meet criteria for inpatient psychiatric admission following her medical stay for COVID. Psychiatry will arrange outpatient follow-up for the patient. She did not have suicidal ideation in the days leading up to hospital discharge. (6) Suicidal ideation: 1:1 observation initially, then was deemed safe to be off such later in her stay. Psychiatry felt that she was not a threat to herself or others and thus inpatient psychiatric treatment was not recommended. (7) Elevated AST (SGOT): 2nd to #1 minimally high, then normalized prior to discharge. CPK was wnl. (8) Pancytopenia: 2nd to #1 and #2 in the setting of CML. total wbc count on day of discharge = 1.4. lowest platelet count = 74, improving to 160 by discharge. hemoglobin = 10.3 at discharge. repeat cbc needed within 5 days of hospital discharge for stability. s/p neupogen on day of discharge. (9) DVT prophylaxis: heparin 5000 BID while here. (10) UTI (urinary tract infection): gamma strep on urine cx levaquin that was used for pulmonary coverage will also cover this pathogen angular cheilitis - magic mouthwash qid swish/spit; nystatin ointment to corners of mouth TID the patient had been living with a friend in a camper in [place]. initially she had told social work staff that she couldn't return there, but ultimately she confirmed that indeed she could continue living there post- discharge. social work provided her resources for other living arrangements in the event the camper option no longer was a viable option. Total Time Total Time Spent Total Time Spent (In Minutes): 45 Discharge Plan Discharge Items Patient Disposition: Home - Self-Care Reason For Visit: SUICIDAL IDEATION, COVID positive Discharge Diagnosis: 1. COVID-19 infection with evidence of mild pneumonia on chest x-ray 2. low blood counts (white blood cell count, platelets, etc) - due to COVID-19 infection 3. CML 4. Depression and anxiety 5. urinary tract infection Activity: As commented below Activity Comment: gradually increase your activities over the next 1-2 weeks Sexual Activity: Wait until after follow-up appointment Exercise/Sports: Wait until after follow-up appointment Non-emergency contact: Primary Care Provider and Oncologist Call non-emergency contact if: you have any medication questions, your symptoms worsen and you have a fever Follow-up/Referrals: Francisco Clancy MD [Outside Practitioners] - (please call Dr Clancy's office to arrange follow-up for your CML) PCP,NO [Primary Care Provider] - (1 week ) Diet: Regular Ambulatory Orders: Complete Blood Count with Diff (Routine) Timeframe: [id number] Location: Determined by Patient Ordered By: Osmin Ribera Attending Provider Instructions: Ms Crawford, You were hospitalized at [facility] after having thoughts of dying/suicide in the midst of severe anxiety & depression. At the time of admission you tested positive for COVID. You were treated for your COVID with supportive care care (tylenol for fever, etc). The psychiatry team saw you in consult because of your depression/anxiety. They have made medication changes and recommendations including - * mirtazapine 15mg once daily at bedtime for depression/sleep * hydroxyzine 25mg every 6 hours as needed for anxiety * they have also given you resources in the community to have ongoing treatment of your depression/anxiety * they have recommended that you stop the clonazepam You did very well from a COVID standpoint. Despite have pneumonia on your chest x-rays you remained largely asymptomatic from the pneumonia. Your last fever was the evening of 01/24/21. Your blood counts are trying to normalize. In addition you have evidence of a urinary tract infection. We prescribed antibiotics for you for this issue. On day of discharge Dr Clancy recommended to resume your dasatinib. Other recommendations - * CBC blood count on 01/31/21 * follow-up with a new primary care provider either just before Thanksgiving or shortly after * you will need additional CBCs - likely on a weekly basis - as recommended by Dr Clancy * you can have the blood work drawn at the [facility] office or at the hospital * nystatin ointment to the corners of your mouth three times a day for about 1 week * nystatin solution swish/spit - 5ml four times a day for about 1 week Please know that you are no longer contagious to others with respect to the COVID infection. You do not need to isolate at your home. With that said, because of your low white blood cell count and low neutrophil count, please plan to spend the next week or so recovering at home as you will be at risk of bacterial infections from the low white count. Return to [facility] if - * you experience chest pains * you experience shortness of breath * you have worsening diarrhea * you develop recurrent fevers over 100.5 degrees * any other concerns It was our pleasure caring for you at [facility]! -Dr Cuenca Pending Studies at Discharge: No Stand-Alone Forms: My [facility] [place] [employer], Smoking Cessation Medications and DC Order Prescriptions: New nystatin 100,000 unit/gram Ointment 1 applic EXT TID Qty: 30 RF: 0 hydroxyzine HCl 25 mg Tablet 25 mg PO Q6 PRN (Reason: anxiety) Qty: 30 RF: 0 mirtazapine 15 mg Tablet 15 mg PO HS Qty: 30 RF: 2 Continued acyclovir 400 mg tablet 400 mg PO BID RF: 0 metoprolol succinate 25 mg Tablet Extended Release 24 Hr 25 mg PO BID RF: 0 Sprycel 50 mg tablet 100 mg PO DAILY RF: 0 Discontinued cefuroxime axetil 250 mg tablet 250 mg PO BID RF: 0 clonazepam 0.5 mg tablet 0.5 mg PO TID RF: 0 Discharge Orders: Discharge Order (Routine); Ordered 01/27/21 Ordered By: Osmin Smith/Other Patient Handouts: Caring for Someone Who Has COVID-19, Disinfecting Your Home of COVID-19, 2019-nCoV, COVID-19 Prevention, COVID-19 Home Care, Proning COVID-19 Admission Data Admit Date/Time: 01/17/21 15:28 Attending Provider: Osmin Cuenca Admit Provider: Osmin Balderas Primary Care Provider: PCP,NO Other Providers: Osmin Balderas ; Keyona Green ; Flores Umanzor ; Shereen Parrish ; Ziyad Mccormack Other Interventions: Discharge Summary Assessment (RN) Last Done: 01/27/21 14:52 Coding Level of Care Code D/C DAY MANAGEMENT >30 MINS Diagnoses Pneumonia due to COVID-19 virus U07.1; J12.82 COVID-19 virus infection U07.1 CML (chronic myelocytic leukemia) C92.10 Rheumatoid arthritis M06.9 Major depression, recurrent F33.9 Suicidal ideation R45.851 Elevated AST (SGOT) R74.01 Pancytopenia D61.818 DVT prophylaxis Z29.9 UTI (urinary tract infection) N39.0
== END 2021-01-27 16:00 | disposition home or self-care (01) | DRG 177 ==
LOC: ED 11:16 → SUATTDRO 15:28 → 2N 15:28
DX: U07.1 COVID-19; Z88.0 Allergy status to penicillin; B95.4 Other streptococcus as the cause of diseases classified elsewhere; M06.9 Rheumatoid arthritis, unspecified; D61.818 Other pancytopenia; F33.2 Major depressive disorder, recurrent severe without psychotic features; Z88.5 Allergy status to narcotic agent; I48.91 Unspecified atrial fibrillation; Z87.891 Personal history of nicotine dependence; D84.822 Immunodeficiency due to external causes; N39.0 Urinary tract infection, site not specified; K13.0 Diseases of lips; F41.9 Anxiety disorder, unspecified; E87.6 Hypokalemia; Z59.2 Discord with neighbors, lodgers and landlord; R45.851 Suicidal ideations; Z88.2 Allergy status to sulfonamides; Z88.8 Allergy status to other drugs, medicaments and biological substances; J12.82 Pneumonia due to coronavirus disease 2019; C92.90 Myeloid leukemia, unspecified, not having achieved remission